=== PATIENT | male | born 1965 | race Caucasian/White ===

== ENCOUNTER 2017-02-06 15:16 | Inpatient (IN) | payer MEDICARE, BC ==
[2017-02-06] MEDS ORDERED: Albuterol/Ipratropium NEB.SOL* Albuterol 2.5 MG/Ipratropium 0.5 MG 3 ML INH ONE (15:54)
--- NOTE | 2017-02-06 16:05 | RAD ---
HISTORY: Shortness of breath COMPARISONS: May 04, 2010 VIEWS: 1: frontal portable view of the chest at 3:48 PM FINDINGS: LINES AND TUBES: None. CARDIOMEDIASTINAL SILHOUETTE: The cardiomediastinal silhouette is normal for portable technique. PLEURA: The costophrenic angles are sharp. No pleural abnormalities are noted. LUNG PARENCHYMA: There is hyperinflation. There is diffuse coarse pattern of reticular opacification similar to the previous examination. ABDOMEN: The upper abdomen is clear. There is no subphrenic gas. BONES AND SOFT TISSUES: No bone or soft tissue abnormalities are noted. IMPRESSION: COPD WITH CHRONIC INTERSTITIAL CHANGES SIMILAR TO THE PREVIOUS EXAMINATION.
[2017-02-06 16:23] LABS: Hematocrit 32 % (42-52); Hemoglobin 10.3 g/dl (14.0-18.0); Mean Corpuscular HGB Conc 32 g/dl (31-36); Mean Corpuscular Hemoglobin 28 pg (27-31); Mean Corpuscular Volume 87 fL (80-94); Mean Platelet Volume 6 um3 (7.4-10.4); Red Blood Count 3.67 10^6/ul (4.0-5.4); Red Cell Distribution Width 17 % (10.5-15); White Blood Count 9.3 10^3/ul (3.5-10.8)
[2017-02-06 16:38] LABS: ALT 13 U/L (7-52); AST 16 U/L (13-39); Albumin 3.4 g/dL (3.2-5.2); Alkaline Phosphatase 114 U/L (34-104); BUN/Creatinine Ratio 27.3 (8-20); Blood Urea Nitrogen 15 mg/dL (6-24); Calcium 9.5 mg/dL (8.6-10.3); Chloride 88 mmol/L (101-111); Globulin 2.7 g/dL (2-4); Glucose 121 mg/dL (70-100); Potassium 4.4 mmol/L (3.5-5.0); Sodium 139 mmol/L (133-145); Total Protein 6.1 g/dL (6.4-8.9)
[2017-02-06 16:44] LABS: Troponin I 0.04 ng/mL (<0.04)
[2017-02-06 16:58] LABS: CO2 Carbon Dioxide 46 mmol/L (22-32)
[2017-02-06] MEDS ORDERED: Albuterol 2.5 MG/3 ML NEB.SOL* (0.083%) INH PRN (20:02)
[2017-02-06 20:15] LABS: FIO2 36
[2017-02-06 20:22] LABS: PCO2 Arterial 91 mmHg (35-45)
[2017-02-06] MEDS ORDERED: Vancomycin per Pharmacy* NOTE FOLLOW UP PRN (20:43)
[2017-02-06] MEDS ORDERED: Vancomycin(*) 1,500 MG in NS 0.9% 250 ML* 250 ML IVPB ONE (21:00)
[2017-02-06] MEDS: Sodium Chloride(INHALANT) 7%* 4 ML NEB.SOLN INH SCH (21:51)
[2017-02-06] MEDS: Albuterol/Ipratropium NEB.SOL* Albuterol 2.5 MG/Ipratropium 0.5 MG 3 ML INH SCH (21:51)
[2017-02-06] MEDS: Heparin VIAL(*) 5000 UNITS/ML VIAL (FIVE THOUSAND) SUBCUT SCH (22:16)
[2017-02-06] MEDS: methylPREDNISolone 125 MG* 2 ML VIAL IV SCH (22:16)
[2017-02-06] MEDS: Mometasone/Formoter 200/5 MDI INH SCH (22:18)
--- NOTE | 2017-02-06 22:19 | ED ---
Salbador Rodriguez Alfonso, scribed for Hussain Vazquez MD on 02/06/17 at 1542 . Complex/Multi-Sys Presentation - HPI Summary HPI Summary: This patient is a 51 year old M presenting to [facility] with a chief complaint of low O2 saturation since yesterday. He was recently discharged from a hospital on CPAP PRN. He states I lost 72% of my exit airways after a toxic exposure in 2001. The patient rates the pain 0/10 in severity. Symptoms aggravated by nothing. Symptoms alleviated by nothing. Patient reports productive cough and fatigue. Patient denies fever, chills, and SOB. Patient is always on 5L NC. PMHx includes COPD and nodule lung disease. - History Of Current Complaint Chief Complaint: EDShortnessOfBreath Time Seen by Provider: 02/06/17 15:31 Hx Obtained From: Patient Onset/Duration: Sudden Onset, Lasting Days - yesterday, Still Present Timing: Constant Aggravating Factor(s): nothing Alleviating Factor(s): nothing Associated Signs And Symptoms: Positive: Other - productive cough and fatigue. Patient denies fever, chills, and SOB. - Allergies/Home Medications Allergies/Adverse Reactions: Allergies Allergy/AdvReac Type Severity Reaction Status Date / Time Iodinated Diagnostic Agents Allergy Severe Anaphylatic Verified 07/20/15 07:59 Shock Mustard Seed Allergy Unknown Verified 07/20/15 07:59 Reaction Details Home Medications: Home Medications Albuterol/Ipratropium NEB.EVARISTO* [Duoneb (Albuterol 2.5 MG/Ipratropium 0.5 MG)] 1 neb INH Q4H PRN 02/06/17 [History Confirmed 02/06/17] Azithromycin TAB* [Zithromax TAB (Z-TACHO) 250 mg #6 tabs] 250 mg PO DAILY [History Confirmed 02/06/17] Cholecalciferol CAP/TAB(NF) [Vitamin D3 CAP/TAB (NF)] 5,000 unit PO DAILY [History Confirmed 02/06/17] Esomeprazole(NF) [NEXium(NF)] 20 mg PO DAILY 02/06/17 [History Confirmed ] Fluticasone NASAL * [Flonase *] 2 spray BOTH NARES DAILY 02/06/17 [History Confirmed 02/06/17] Fluticasone-Salmeterol 500-50* [Advair Diskus 500-50*] 1 puff INH BID 02/06/17 [ History Confirmed 02/06/17] Magnesium Oxide TAB* [MagOx 400 TAB*] 400 mg PO DAILY 02/06/17 [History Confirmed 02/06/17] Metoprolol Succinate XL TAB* [Toprol XL TAB*] 25 mg PO DAILY 02/06/17 [History Confirmed 02/06/17] Tadalafil [Cialis] 2.5 mg PO DAILY 02/06/17 [History Confirmed 02/06/17] predniSONE TAB* [Deltasone TAB*] 10 - 60 mg PO DAILY 02/06/17 [History Confirmed 02/06/17] PMH/Surg Hx/FS Hx/Imm Hx Respiratory History: Reports: Hx Chronic Obstructive Pulmonary Disease (COPD), Other Respiratory Problems/Disorders - 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 Opthamlomology History: Denies: Hx Legally Blind EENT History: Denies: Hx Deafness - Surgical History Surgery Procedure, Year, and Place: SINUS Infectious Disease History: No Infectious Disease History: Denies: Traveled Outside the [place] in Last 30 Days - Family History Known Family History: Negative: Cardiac Disease - Social History Alcohol Use: Rare Hx Substance Use: No Substance Use Type: Reports: None Smoking Status (MU): Never Smoked Tobacco Review of Systems Positive: Fatigue. Negative: Fever, Chills Positive: Cough, Other - low O2 saturation. Negative: Shortness Of Breath All Other Systems Reviewed And Are Negative: Yes Physical Exam Triage Information Reviewed: Yes Vital Signs On Initial Exam: Initial Vitals Temp Pulse Resp BP Pulse Ox 98.2 F 103 16 130/76 73 02/06/17 15:19 02/06/17 15:19 02/06/17 15:19 02/06/17 15:19 02/06/17 15:19 Vital Signs Reviewed: Yes Appearance: Positive: Well-Appearing, No Pain Distress Skin: Positive: Warm, Skin Color Reflects Adequate Perfusion, Dry Head/Face: Positive: Normal Head/Face Inspection Eyes: Positive: Normal ENT: Positive: Normal ENT inspection Neck: Positive: Supple, Nontender Respiratory/Lung Sounds: Positive: Decreased Breath Sounds, Other - Crackles in all lung garcia Cardiovascular: Positive: Tachycardia Abdomen Description: Positive: Nontender, Soft Bowel Sounds: Positive: Present Musculoskeletal: Positive: Normal Neurological: Positive: Normal, Sensory/Motor Intact, Alert, Oriented to Person Place, Time, CN Intact II-III Psychiatric: Positive: Normal, Affect/Mood Appropriate Diagnostics - Vital Signs Vital Signs Temp Pulse Resp BP Pulse Ox 02/06/17 15:19 98.2 F 103 16 130/76 73 - Laboratory Lab Results: Lab Results 02/06/17 02/06/17 02/06/17 Range/Units 16:08 16:08 16:08 WBC 9.3 (3.5-10.8) 10^3/ul RBC 3.67 L (4.0-5.4) 10^6/ul Hgb 10.3 L (14.0-18.0) g/dl Hct 32 L (42-52) % MCV 87 (80-94) fL MCH 28 (27-31) pg MCHC 32 (31-36) g/dl RDW 17 H (10.5-15) % Plt Count 353 (150-450) 10^3/ul MPV 6 L (7.4-10.4) um3 Neut % (Auto) 95.8 H (38-83) % Lymph % (Auto) 2.6 L (25-47) % [place] % (Auto) 1.5 (1-9) % Eos % (Auto) 0 (0-6) % Baso % (Auto) 0.1 (0-2) % Absolute Neuts (auto) 9.0 H (1.5-7.7) 10^3/ul Absolute Lymphs (auto) 0.2 L (1.0-4.8) 10^3/ul Absolute Monos (auto) 0.1 (0-0.8) 10^3/ul Absolute Eos (auto) 0 (0-0.6) 10^3/ul Absolute Basos (auto) 0 (0-0.2) 10^3/ul Absolute Nucleated RBC 0 10^3/ul Nucleated RBC % 0 Sodium 139 (133-145) mmol/L Potassium 4.4 (3.5-5.0) mmol/L Chloride 88 L (101-111) mmol/L Carbon Dioxide 46 H* (22-32) mmol/L Anion Gap Not Reportable BUN 15 (6-24) mg/dL Creatinine 0.55 L (0.67-1.17) mg/dL Est GFR ( Amer) 202.0 (>60) Est GFR (Non-Af Amer) 157.0 (>60) BUN/Creatinine Ratio 27.3 H (8-20) Glucose 121 H (70-100) mg/dL Lactic Acid 0.6 (0.5-2.0) mmol/L Calcium 9.5 (8.6-10.3) mg/dL Total Bilirubin 0.30 (0.2-1.0) mg/dL AST 16 (13-39) U/L ALT 13 (7-52) U/L Alkaline Phosphatase 114 H (34-104) U/L Troponin I 0.04 H* (<0.04) ng/mL B-Natriuretic Peptide ( - 100) pg/mL Total Protein 6.1 L (6.4-8.9) g/dL Albumin 3.4 (3.2-5.2) g/dL Globulin 2.7 (2-4) g/dL Albumin/Globulin Ratio 1.3 (1-3) 02/06/17 Range/Units 16:08 WBC (3.5-10.8) 10^3/ul RBC (4.0-5.4) 10^6/ul Hgb (14.0-18.0) g/dl Hct (42-52) % MCV (80-94) fL MCH (27-31) pg MCHC (31-36) g/dl RDW (10.5-15) % Plt Count (150-450) 10^3/ul MPV (7.4-10.4) um3 Neut % (Auto) (38-83) % Lymph % (Auto) (25-47) % [place] % (Auto) (1-9) % Eos % (Auto) (0-6) % Baso % (Auto) (0-2) % Absolute Neuts (auto) (1.5-7.7) 10^3/ul Absolute Lymphs (auto) (1.0-4.8) 10^3/ul Absolute Monos (auto) (0-0.8) 10^3/ul Absolute Eos (auto) (0-0.6) 10^3/ul Absolute Basos (auto) (0-0.2) 10^3/ul Absolute Nucleated RBC 10^3/ul Nucleated RBC % Sodium (133-145) mmol/L Potassium (3.5-5.0) mmol/L Chloride (101-111) mmol/L Carbon Dioxide (22-32) mmol/L Anion Gap BUN (6-24) mg/dL Creatinine (0.67-1.17) mg/dL Est GFR ( Amer) (>60) Est GFR (Non-Af Amer) (>60) BUN/Creatinine Ratio (8-20) Glucose (70-100) mg/dL Lactic Acid (0.5-2.0) mmol/L Calcium (8.6-10.3) mg/dL Total Bilirubin (0.2-1.0) mg/dL AST (13-39) U/L ALT (7-52) U/L Alkaline Phosphatase (34-104) U/L Troponin I (<0.04) ng/mL B-Natriuretic Peptide 76 ( - 100) pg/mL Total Protein (6.4-8.9) g/dL Albumin (3.2-5.2) g/dL Globulin (2-4) g/dL Albumin/Globulin Ratio (1-3) Result Diagrams: 02/06/17 16:08 02/06/17 16:08 Lab Statement: Any lab studies that have been ordered have been reviewed, and results considered in the medical decision making process. - Radiology CXR Radiology Interpretation Completed By: Radiologist - COPD WITH CHRONIC INTERSTITIAL CHANGES SIMILAR TO THE PREVIOUS EXAMINATION. ED physician has reviewed this radiology report and agrees. - EKG 1633 Cardiac Rate: Tachycardia - BPM 101 EKG Rhythm: Sinus Tachycardia EKG Interpretation: LVH Complex Multi-Symp Course/Dx Course Of Treatment: Mr. Woodard presented with respiratory insufficiency and a long history of bronchiectasis. 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 - Diagnoses Provider Diagnoses: Respiratory insufficiency, Bronchiectasis Discharge - Discharge Plan Condition: Stable Disposition: ADMITTED TO [facility] The documentation as recorded by the Salbador roldan Alfonso accurately reflects the service I personally performed and the decisions made by , Hussain Vazquez MD.
--- NOTE | 2017-02-06 23:08 | HP ---
CC: Katlin Recinos MD; Dr. Nash * HISTORY AND PHYSICAL: DATE OF ADMISSION: 02/06/17 PRIMARY CARE PROVIDER: Katlin Recinos MD ATTENDING PHYSICIAN WHILE IN THE HOSPITAL: Lashell Engle DO * (report dictated by Jose Angel Vera NP) CHIEF COMPLAINT: 1. Cough. 2. Dyspnea on exertion. HISTORY OF PRESENT ILLNESS: Mr. Woodard is a 51-year-old male patient who has a history of IgG immunodeficiency, history of bronchiectasis, history of nodular lung disease, skin cancer and pulmonary hypertension. He comes in today. 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 He was there for about a week. He was treated with high dose steroids, antibiotics and ultimately was discharged on home Trilogy. He had been doing well. He was on a 2-week course of steroids. He just finished the steroids on 01/30/17, he went back down to [place]. He states that since stopping the steroids throughout the last week, he has had progressive worsening shortness of breath. Anytime he gets up and tries to do anything, he is very short of breath. He also has noticed in the last week with his Trilogy that at times he has been satting down into the 70s and not tolerating the machine well. He denied having any chest pain. Denied any fevers or chills. He states he has been coughing up copious amounts of yellow- type sputum, which he always does, there has been no change. However, he was just concerned because he has been feeling more fatigued. He actually was recently just started back on steroids in the form of prednisone over the last 48 hours, but despite this he just has not been improving, so he came into the ER today to be evaluated. He again denied any nausea, vomiting. Denies having any chest pain. Denies any shortness of breath with the exception of with exertion. No orthopnea, no nocturnal dyspnea. No abdominal pain. He has been evaluated in the ED. Because of the concern for the exacerbation of his bronchiectasis, we were asked to evaluate for admission. PAST MEDICAL HISTORY: Significant for: 1. Bronchiectasis. 2. Immunodeficiency disorder. 3. He has IgG nodular lung disease. 4. History of skin cancer. 5. Pulmonary hypertension. PAST SURGICAL HISTORY: 1. He recently just had sinus surgery in [place]. 2. He has a history of skin cancer excision. 3. History of bronchoscopy. HOME MEDICATIONS: Include: 1. Metoprolol 25 mg daily. 2. Magnesium oxide 400 mg daily. 3. Flonase 2 sprays both nares daily. 4. Nexium 20 mg daily. 5. Vitamin D3, 5000 units daily. 6. Z-Yariel 250 mg daily just started. 7. Prednisone taper, take as directed. 8. Cialis 2.5 mg daily. 9. DuoNeb 1 neb every 4 hours as needed. 10. Advair 1 puff inhaled b.i.d. 11. He also is on IgG 1 injection weekly. We will try to get that brought in. ALLERGIES TO MEDICATIONS: Include IV DYE, CIPRO, and MUSTARD SEEDS. FAMILY HISTORY: Mother is diabetic. Father has history of hypertension and Parkinson's. SOCIAL HISTORY: He does not smoke. He does not drink. Surrogate decision maker is his . REVIEW OF SYSTEMS: There is no documented fever. He denied any significant weight change. There was no double vision. There is no ear discharge. He denied having any rhinorrhea. No sore throat. No thyroid enlargement. Denies having any chest pain. There is no orthopnea, no nocturnal dyspnea. There is no abdominal pain. No nausea. No vomiting. No dysuria. No frequency. No seizure. No loss of consciousness. No pruritus. No skin ulcerations. Review of 14 systems was completed; all others negative. PHYSICAL EXAMINATION GENERAL: At this time, Mr. Woodard is a 51-year-old male patient. He appears to be well nourished, well developed. He does not appear to be in any acute distress. VITAL SIGNS: Reveal blood pressure 123/74, pulse 97, respirations 22, O2 sat of 91%, temperature of 98.2. HEENT: Head is atraumatic and normocephalic. Eyes: EOMs are intact. Sclerae are anicteric and not pale. Throat: Oral mucosa appears to be moist. No oropharyngeal erythema. NECK: Supple. LUNGS: Lungs were rhonchorous throughout bilaterally. He had wheezing in the upper lobes. Equal diaphragmatic expansion diminished in the bases. HEART: Sounds S1 and S2. Regular rate and rhythm. No murmurs, rubs, or gallops. ABDOMEN: Soft, flat, and nontender. Bowel sounds were present. EXTREMITIES: Pulses were 2+ throughout. He had no pitting edema. He had 5/5 strength. NEUROLOGIC: He is awake, alert, oriented x3. Tongue was midline. Benefits Administrator were equal. No gross focal deficits. SKIN: Intact. LABORATORY DATA/DIAGNOSTIC STUDIES: WBC 9.3, RBC 3.67, hemoglobin 10.3, hematocrit 32, and platelet count 353,000. Sodium 139, potassium 4.0, chloride 88, bicarb 46, BUN 15, creatinine 0.55, glucose 121. Lactate 0.6. Calcium 9.5. Total bili 0.3. AST 16, ALT 13, alk phos 114. Troponin 0.04. BNP 76. Albumin was 3.4. He had a chest x-ray obtained today. Impression: COPD with chronic interstitial changes similar to previous examination. On my review, it does appear to be slightly worse on tonight's exam. He did have an EKG obtained today as well, which revealed sinus tachycardia with LVH with rate of 101. No ST elevations or T wave inversions. Old medical records were reviewed. ASSESSMENT AND PLAN: Mr. Woodard is a 51-year-old male patient with end-stage bronchiectasis. He is actually awaiting transplant in the [facility]. He is in touch with the transplant team, just admitted in the middle of December, now a month later he was admitted in [facility] just about a month ago, now presenting again today with a week's worsening of shortness of breath, dyspnea on exertion, not feeling well. On evaluation today, he was noted to be mildly tachypneic, wheezing on exam and rhonchorous throughout. We were asked to evaluate for admission. He will be admitted under inpatient status for: 1. Bronchiectasis with exacerbation. I did touch base with Pulmonology. The plan is to go ahead and put him on hypertonic saline, cefepime to cover for Pseudomonas, vancomycin, steroids 60 q.6. In addition to this, we will panculture him. I am not going to give him fluids as he is not hypotensive at this point. He does not appear to have signs of sepsis. We will get an ABG, start him on Trilogy to see how he is tolerating it to see if there is any adjustment that we can make to make him tolerate this better. He was having trouble with desaturations, but I would like to have evaluated by RT. If this does not work, I will place him on BiPAP and we will have Pulmonology evaluate the patient and we will continue to follow him. Should he deteriorate, we will probably consider transfer to a tertiary care center should we not be able to handle the care, but at this point we will go ahead and continue with his current medical regimen. 2. Immunodeficiency disorder. We will continue his IgG. 3. History of nodular lung disease. We are going to continue his current medical regimen. 4. History of pulmonary hypertension. He is on Cialis, we will continue. 5. DVT prophylaxis. He is high risk. I am going to go ahead and place him on heparin subcu. 6. Code status. He is a full code. 7. Fluids, electrolytes, and nutrition. Regular diet. TIME SPENT: On admission 70 minutes, greater than half the time spent face-to- face with the patient obtaining my history and physical; other half time spent going over the plan of care with the patient and implementing plan of care. I did discuss the plan of care with my attending, Dr. Engle, she is in agreement. JOSE ANGEL VERA NP [id number]/[facility] #: [id number] JEREMIAS
[2017-02-06] MEDS: Cefepime 2 GM in Dextrose(*) 2 GM/50 ML BAG IV SCH (23:45)
[2017-02-07] MEDS: Sodium Chloride(INHALANT) 7%* 4 ML NEB.SOLN INH SCH ×4 (02:22→20:39)
[2017-02-07] MEDS: Albuterol/Ipratropium NEB.SOL* Albuterol 2.5 MG/Ipratropium 0.5 MG 3 ML INH SCH ×6 (02:23→20:37)
[2017-02-07 05:13] LABS: Hematocrit 33 % (42-52); Hemoglobin 10.2 g/dl (14.0-18.0); Mean Corpuscular HGB Conc 31 g/dl (31-36); Mean Corpuscular Hemoglobin 27 pg (27-31); Mean Corpuscular Volume 88 fL (80-94); Mean Platelet Volume 7 um3 (7.4-10.4); Red Blood Count 3.78 10^6/ul (4.0-5.4); Red Cell Distribution Width 17 % (10.5-15)
[2017-02-07] MEDS: methylPREDNISolone 125 MG* 2 ML VIAL IV SCH ×3 (05:13→21:59)
[2017-02-07] MEDS: Cefepime 2 GM in Dextrose(*) 2 GM/50 ML BAG IV SCH ×3 (05:13→22:00)
[2017-02-07] MEDS: Heparin VIAL(*) 5000 UNITS/ML VIAL (FIVE THOUSAND) SUBCUT SCH ×3 (05:13→21:59)
[2017-02-07 05:24] LABS: Blood Urea Nitrogen 14 mg/dL (6-24); Calcium 9.6 mg/dL (8.6-10.3); Chloride 90 mmol/L (101-111); EGFR African American 197.8 (>60); EGFR Non-African American 153.8 (>60); Glucose 141 mg/dL (70-100); Sodium 139 mmol/L (133-145)
[2017-02-07 05:47] LABS: CO2 Carbon Dioxide 45 mmol/L (22-32)
[2017-02-07] MEDS: Vancomycin(*) 1,500 MG in NS 0.9% 250 ML* 250 ML IVPB SCH ×3 (06:19→23:31)
[2017-02-07 07:02] LABS: Anion Gap 4 mmol/L (2-11)
--- NOTE | 2017-02-07 07:55 | PN ---
Subjective Date of Service: 02/07/17 Interval History: Somewhat better. At baseline with regard to cough and sputum production. He also states he always wheezes. Objective Active Medications: Albuterol (Ventolin 2.5 Mg/3 Ml Neb.Selina*) 2.5 mg INH Q2H PRN PRN Reason: SOB/WHEEZING Albuterol/Ipratropium (Duoneb (Albuterol 2.5 Mg/Ipratropium 0.5 Mg)) 1 neb INH Q4H [facility] Last Admin: 02/07/17 06:18 Dose: 1 neb Heparin Sodium (Porcine) (Heparin Vial(*)) 5,000 units SUBCUT Q8HR [facility] Last Admin: 02/07/17 05:13 Dose: 5,000 units Cefepime HCl (Maxipime 2 Gm In Dextrose Duplex (*)) 2 gm in 50 mls @ 100 mls/ hr IV Q8H [facility] Last Admin: 02/07/17 05:13 Dose: 100 mls/hr Vancomycin HCl 1,500 mg/ (Sodium Chloride) 250 mls @ 166.667 mls/hr IVPB Q8H [facility] Last Admin: 02/07/17 06:19 Dose: 166.667 mls/hr Methylprednisolone Sodium Succinate (Solu-Medrol 125mg *) 60 mg IV Q8H [facility] Last Admin: 02/07/17 05:13 Dose: 60 mg Metoprolol Succinate (Toprol Xl Tab*) 25 mg PO DAILY [facility] Mometasone Furoate/Formoterol Fumar (Dulera 200/5 Mdi*) 2 puff INH BID [facility] Last Admin: 02/06/17 22:18 Dose: 2 puff (Tadalafil [Cialis] (2.5 Mg)) 2.5 mg PO DAILY [facility] Omeprazole (Prilosec Cap*) 20 mg PO DAILY [facility] PRN Reason: Protocol Pharmacy Consult (Vancomycin Per Pharmacy*) 1 note FOLLOW UP . PRN PRN Reason: PER PROTOCOL Pharmacy Profile Note (Vancomycin Trough Check) 1 note FOLLOW UP 2200 ONE Stop: 02/07/17 22:01 Sodium Chloride (Hyper-Librado 7%*) 4 ml INH Q6H [facility] Last Admin: 02/07/17 02:22 Dose: 4 ml Vital Signs 02/06/17 02/06/17 02/06/17 19:00 19:30 20:00 Temperature Pulse Rate 105 107 105 Respiratory 30 31 22 Rate Blood Pressure 130/70 129/62 111/66 (mmHg) O2 Sat by Pulse 93 88 92 Oximetry 02/06/17 02/06/17 02/06/17 20:30 21:00 21:04 Temperature Pulse Rate 105 106 106 Respiratory 21 22 28 Rate Blood Pressure 117/58 116/63 (mmHg) O2 Sat by Pulse 91 93 93 Oximetry 02/06/17 02/06/17 02/06/17 21:34 21:42 21:45 Temperature 99.3 F Pulse Rate 100 107 104 Respiratory 23 28 23 Rate Blood Pressure 111/74 111/74 119/72 (mmHg) O2 Sat by Pulse 94 94 94 Oximetry 02/06/17 02/06/17 02/06/17 21:52 22:00 22:15 Temperature Pulse Rate 96 101 111 Respiratory 18 13 23 Rate Blood Pressure 111/75 147/94 (mmHg) O2 Sat by Pulse 100 100 91 Oximetry 02/06/17 02/06/17 02/06/17 22:30 22:45 23:00 Temperature Pulse Rate 98 97 97 Respiratory 20 18 20 Rate Blood Pressure 130/80 141/80 129/81 (mmHg) O2 Sat by Pulse 93 91 91 Oximetry 02/06/17 02/06/17 02/06/17 23:15 23:26 23:30 Temperature 98.2 F Pulse Rate 93 100 91 Respiratory 20 19 25 Rate Blood Pressure 149/87 135/84 (mmHg) O2 Sat by Pulse 88 84 83 Oximetry 02/06/17 02/06/17 02/06/17 23:41 23:45 23:46 Temperature Pulse Rate 96 Respiratory 20 20 Rate Blood Pressure 135/83 147/90 (mmHg) O2 Sat by Pulse 100 Oximetry 02/07/17 02/07/17 02/07/17 00:00 00:15 00:30 Temperature Pulse Rate 92 93 85 Respiratory 20 14 19 Rate Blood Pressure 131/80 128/85 136/85 (mmHg) O2 Sat by Pulse 98 98 94 Oximetry 02/07/17 02/07/17 02/07/17 00:37 00:45 00:56 Temperature Pulse Rate 94 91 Respiratory 15 16 17 Rate Blood Pressure 161/94 (mmHg) O2 Sat by Pulse 92 88 Oximetry 02/07/17 02/07/17 02/07/17 01:00 01:54 01:55 Temperature Pulse Rate 104 104 Respiratory 14 19 19 Rate Blood Pressure 145/77 (mmHg) O2 Sat by Pulse 90 93 Oximetry 02/07/17 02/07/17 02/07/17 02:00 02:24 02:31 Temperature Pulse Rate 87 92 96 Respiratory 22 22 22 Rate Blood Pressure 129/81 (mmHg) O2 Sat by Pulse 93 98 98 Oximetry 02/07/17 02/07/17 02/07/17 03:00 03:14 03:44 Temperature Pulse Rate 97 83 121 Respiratory 20 16 21 Rate Blood Pressure 138/86 138/86 (mmHg) O2 Sat by Pulse 92 88 82 Oximetry 02/07/17 02/07/17 02/07/17 04:00 04:07 04:58 Temperature 97.8 F Pulse Rate 86 88 Respiratory 16 17 20 Rate Blood Pressure 134/85 (mmHg) O2 Sat by Pulse 91 90 Oximetry 02/07/17 02/07/17 02/07/17 05:00 05:16 06:00 Temperature Pulse Rate 111 99 105 Respiratory 19 23 17 Rate Blood Pressure 134/76 (mmHg) O2 Sat by Pulse 91 93 93 Oximetry 02/07/17 02/07/17 02/07/17 07:00 07:32 07:37 Temperature 97.2 F Pulse Rate 96 113 Respiratory 25 19 Rate Blood Pressure 124/69 (mmHg) O2 Sat by Pulse 95 91 Oximetry Oxygen Devices in Use Now: Nasal Cannula Appearance: Alert, sitting on the edge of his ICU bed. In good spirits. Looks comfortable. No cough during my visit. Ears/Nose/Mouth/Throat: Clear Oropharnyx, Mucous Membranes Moist Neck: NL Appearance and Movements; NL JVP, No Thyroid Enlargement, Masses Respiratory: Symmetrical Chest Expansion and Respiratory Effort, Clear to Percussion - mild wheezing and rhonchi BL Cardiovascular: NL Sounds; No Murmurs; No JVD, RRR, No Edema, - Extremities: No Edema, No Clubbing, Cyanosis, - Skin: No Rash or Ulcers, No Nodules or Sclerosis, - Neurological: Alert and Oriented x 3, NL Sensation Result Diagrams: 02/07/17 04:53 02/07/17 04:53 Additional Lab and Data: Lab Results 02/06/17 02/06/17 02/06/17 Range/Units 16:08 16:08 16:08 WBC 9.3 (3.5-10.8) 10^3/ul RBC 3.67 L (4.0-5.4) 10^6/ul Hgb 10.3 L (14.0-18.0) g/dl Hct 32 L (42-52) % MCV 87 (80-94) fL MCH 28 (27-31) pg MCHC 32 (31-36) g/dl RDW 17 H (10.5-15) % Plt Count 353 (150-450) 10^3/ul MPV 6 L (7.4-10.4) um3 Neut % (Auto) 95.8 H (38-83) % Lymph % (Auto) 2.6 L (25-47) % [place] % (Auto) 1.5 (1-9) % Eos % (Auto) 0 (0-6) % Baso % (Auto) 0.1 (0-2) % Absolute Neuts (auto) 9.0 H (1.5-7.7) 10^3/ul Absolute Lymphs (auto) 0.2 L (1.0-4.8) 10^3/ul Absolute Monos (auto) 0.1 (0-0.8) 10^3/ul Absolute Eos (auto) 0 (0-0.6) 10^3/ul Absolute Basos (auto) 0 (0-0.2) 10^3/ul Absolute Nucleated RBC 0 10^3/ul Nucleated RBC % 0 Sodium 139 (133-145) mmol/L Potassium 4.4 (3.5-5.0) mmol/L Chloride 88 L (101-111) mmol/L Carbon Dioxide 46 H* (22-32) mmol/L Anion Gap Not Reportable BUN 15 (6-24) mg/dL Creatinine 0.55 L (0.67-1.17) mg/dL Est GFR ( Amer) 202.0 (>60) Est GFR (Non-Af Amer) 157.0 (>60) BUN/Creatinine Ratio 27.3 H (8-20) Glucose 121 H (70-100) mg/dL Lactic Acid 0.6 (0.5-2.0) mmol/L Calcium 9.5 (8.6-10.3) mg/dL Total Bilirubin 0.30 (0.2-1.0) mg/dL AST 16 (13-39) U/L ALT 13 (7-52) U/L Alkaline Phosphatase 114 H (34-104) U/L Troponin I 0.04 H* (<0.04) ng/mL B-Natriuretic Peptide ( - 100) pg/mL Total Protein 6.1 L (6.4-8.9) g/dL Albumin 3.4 (3.2-5.2) g/dL Globulin 2.7 (2-4) g/dL Albumin/Globulin Ratio 1.3 (1-3) 02/06/17 Range/Units 16:08 WBC (3.5-10.8) 10^3/ul RBC (4.0-5.4) 10^6/ul Hgb (14.0-18.0) g/dl Hct (42-52) % MCV (80-94) fL MCH (27-31) pg MCHC (31-36) g/dl RDW (10.5-15) % Plt Count (150-450) 10^3/ul MPV (7.4-10.4) um3 Neut % (Auto) (38-83) % Lymph % (Auto) (25-47) % [place] % (Auto) (1-9) % Eos % (Auto) (0-6) % Baso % (Auto) (0-2) % Absolute Neuts (auto) (1.5-7.7) 10^3/ul Absolute Lymphs (auto) (1.0-4.8) 10^3/ul Absolute Monos (auto) (0-0.8) 10^3/ul Absolute Eos (auto) (0-0.6) 10^3/ul Absolute Basos (auto) (0-0.2) 10^3/ul Absolute Nucleated RBC 10^3/ul Nucleated RBC % Sodium (133-145) mmol/L Potassium (3.5-5.0) mmol/L Chloride (101-111) mmol/L Carbon Dioxide (22-32) mmol/L Anion Gap BUN (6-24) mg/dL Creatinine (0.67-1.17) mg/dL Est GFR ( Amer) (>60) Est GFR (Non-Af Amer) (>60) BUN/Creatinine Ratio (8-20) Glucose (70-100) mg/dL Lactic Acid (0.5-2.0) mmol/L Calcium (8.6-10.3) mg/dL Total Bilirubin (0.2-1.0) mg/dL AST (13-39) U/L ALT (7-52) U/L Alkaline Phosphatase (34-104) U/L Troponin I (<0.04) ng/mL B-Natriuretic Peptide 76 ( - 100) pg/mL Total Protein (6.4-8.9) g/dL Albumin (3.2-5.2) g/dL Globulin (2-4) g/dL Albumin/Globulin Ratio (1-3) Microbiology and Other Data: Microbiology 02/06/17 21:26 Gram Stain - Final Sputum Expectorated 02/06/17 22:30 Legionella Urinary Antigen - Final Urine Negative Legionella Streptococcus pneumoniae Ag Screen - Final Negative S. pneumo Antigen 02/06/17 21:26 Nasal Screen MRSA (PCR)(AUTUMN) - Final Nasal Mrsa Negative 02/06/17 21:38 Influenza Types A,B Antigen (AUTUMN) - Final Nasal Specimen received for Influenza A/B Molecular testing Assess/Plan/Problems-Billing Assessment: - Patient Problems (1) Bronchiectasis Current Visit: Yes Status: Acute Code(s): J47.9 - BRONCHIECTASIS, UNCOMPLICATED SNOMED Code(s): 14765188 Comment: Continue antibiotics, steroids, bronchodilators. Dr. Nash to consult 02/07. Add guaifenesin ER. I had a lengthy discussion with patient about treatment options. He did not tolerate Trilogy even after an adjustment at home by the company rep. (2) IgG deficiency Current Visit: Yes Status: Acute Code(s): D80.3 - SELECTIVE DEFICIENCY OF IMMUNOGLOBULIN G [IGG] SUBCLASSES SNOMED Code(s): 28747579853737 Comment: Continue fup by his paster supervisor. He sefl-inject IgG at home every Thursday. Pt advised to have his bring it in if he is still here Thursday.
[2017-02-07] MEDS ORDERED: NS 0.9% 250 ML* 250 ML ONE (08:56)
[2017-02-07] MEDS: Mometasone/Formoter 200/5 MDI INH SCH ×2 (09:05→20:40)
[2017-02-07] MEDS: Metoprolol Succinate XL TAB* 25 MG PO SCH (09:29)
[2017-02-07] MEDS: guaiFENesin ER TAB 600 MG PO SCH ×2 (09:29→21:59)
[2017-02-07] MEDS: Omeprazole CAP* 20 MG PO SCH (09:29)
[2017-02-07] MEDS: TADALAFIL 2.5 MG PO SCH (09:30)
--- NOTE | 2017-02-07 13:11 | CONS ---
PULMONARY CONSULTATION REPORT: DATE OF CONSULTATION: 02/07/17 CONSULTATION REQUESTED BY: Jose Angel Vera NP REASON FOR CONSULTATION: Evaluation of shortness of breath, bronchiectasis exacerbation. HISTORY OF PRESENT ILLNESS: The patient is a 51-year-old male with history of IgE immunodeficiency, history of bronchiectasis likely secondary to occupational exposure, history of nodular lung disease, skin cancer, and pulmonary hypertension. The patient comes in for evaluation of cough and worsening shortness of breath. 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 The patient reported occupational lung disease that resulted in bronchiectasis. He has history of pneumonia as a child given IgG deficiency. He is currently on IgG infusions. The patient reported worsening shortness of breath over the past week prior to the admission. He was recently hospitalized for bronchiectasis exacerbation, was treated with antibiotics and steroids. Given hypercapnic respiratory failure, he was discharged home on Trilogy. The patient has noticed significant hypoxemia and fatigue with Trilogy. His machine was never titrated. He is currently on tidal volume of 400, rate auto, rise time of 1, IPAP max of 15, IPAP minimum of 5, EPAP minimum of 4, max pressure of 25. The patient reports that he connects 4 L oxygen to his Trilogy. His oxygen concentrator was changed recently due to some issues. The patient reports no increasing cough or sputum production recently. The patient denied nausea, vomiting, chest pain. He has dyspnea on exertion, which he did not think was changed from his baseline. His main concern was the fatigue. He denied orthopnea, nocturnal dyspnea, abdominal pain, fevers, or chills. The patient was admitted for management of acute hypoxemic and hypercapnic respiratory failure, likely secondary to bronchiectasis. The patient was placed on BiPAP from the hospital last night. The patient reports improvement in symptoms currently. The patient reports that he is able to cough off his mucus well this morning. No hemoptysis noted. PAST MEDICAL HISTORY: 1. Bronchiectasis. 2. Immunodeficiency disorder. 3. IgG nodular disease. 4. Skin cancer. 5. Pulmonary hypertension. SURGICAL HISTORY: 1. Recently had sinus surgery in [place]. 2. Skin cancer excision. 3. Bronchoscopy. MEDICATIONS AT HOME: 1. Metoprolol 25 mg daily. 2. Magnesium oxide 400 mg daily. 3. Flonase 2 sprays both nares daily. 4. Nexium 20 mg daily. 5. Vitamin D3 5000 units daily. 6. Z-Yariel 250 mg daily. 7. Prednisone taper. 8. Cialis 2.5 mg daily. 9. DuoNeb 1 mg q.4 hours. 10. Advair 1 puff b.i.d. 11. IgG injections weekly. ALLERGIES: DYE, CIPRO, MUSTARD SEEDS. FAMILY HISTORY: Mother is diabetic. Father with hypertension and Parkinson's. SOCIAL HISTORY: The patient is a lifelong nonsmoker. No history of alcohol abuse. The patient denied any drug abuse. He lives at home with his . REVIEW OF SYSTEMS: All 14 systems reviewed and as per HPI. PHYSICAL EXAM: The patient in bed, in no apparent distress. Vital Signs: Temperature 97.2, heart rate 107 beats per minute, respiratory rate 20 per minute, O2 sat 93% to 92% on 4 L, blood pressure 130/96. HEENT: Pupils equal, reactive to light. Mucous membranes moist. Lungs: Scattered expiratory wheeze and crackles present bilaterally. Cardiovascular: S1, S2 present, tachycardic. Abdomen: Soft, nontender, nondistended. Bowel sounds present. Extremities: Normal range of motion. Pulses 2+. Neurologic: Alert, awake, oriented x3. No focal deficits. Skin: Intact. No bruise. DIAGNOSTIC STUDIES/LAB DATA: No leukocytosis with WBC count of 5.0, hemoglobin 10.2, hematocrit 33, platelet count 381. INR 1.02. Blood gas analysis on admission showed pH of 7.41, pCO2 91, pO2 58, and 36% FiO2 with a bicarb of 47. Sodium was 139, potassium 4.4, chloride 90, bicarb 45, BUN 14, creatinine 0.56. Lactic acid within normal limits. Troponins elevated and stable at 0.04. BNP 76. Serum cultures negative to date. MRSA negative. Strep pneumo and Legionella negative. Chest x-ray on admission was personally reviewed by me and comparison with his prior chest x-ray - the patient noted to have chronic interstitial changes bilaterally and evidence of hyperinflation. No consolidation or dense airspace opacities were noted. IMPRESSION AND RECOMMENDATIONS: 51-year-old male with history of IgG deficiency , bronchiectasis secondary to IgG and recurrent bronchitis, and possible occupational lung disease, admitted with: 1. Acute on chronic hypoxemic and hypercapnic respiratory failure. 2. Bronchiectasis exacerbation. 3. Immunoglobin E deficiency. 4. Pulmonary hypertension. 5. Elevated troponins, likely demand ischemia. 6. Anemia. The patient is stable currently, desats in between, however, not using accessory muscles of respiration at this time. No hemoptysis. I think main issue here is Trilogy not functioning well at home or probably oxygen source is defective. He did better with BiPAP ST here, would continue at night and use it during the day for respiratory distress. He is stable to be managed on the floor, is not in acute respiratory failure at this time that he would need close monitoring when he is on BiPAP. The patient is on broad-spectrum antibiotics for pseudomonal coverage and also MRSA given history of bronchiectasis. Agree with current dose of Solu-Medrol at 60 mg IV q.8, we will continue with that dose today and would taper it of to 60 mg q.12 hours tomorrow. Continue with hypertonic nebs and albuterol nebs q.6 hours while awake. The patient's is to bring in his Vest therapy, the patient is aware of technique of usage. Demand ischemia, he is on metoprolol, still tachycardic likely secondary to underlying respiratory problem. Continue with Cialis for pulmonary hypertension secondary to bronchiectasis. Would manage non-CF bronchiectasis with focus on airway clearance. Thank you for allowing me to participate in the care of your patient. Will follow up with you. [id number]/RAJ #: [id number] JEREMIAS
[2017-02-07] MEDS ORDERED: Vancomycin Trough Check NOTE FOLLOW UP ONE (22:00)
[2017-02-08] MEDS: Albuterol/Ipratropium NEB.SOL* Albuterol 2.5 MG/Ipratropium 0.5 MG 3 ML INH SCH ×6 (01:58→22:03)
[2017-02-08] MEDS: Sodium Chloride(INHALANT) 7%* 4 ML NEB.SOLN INH SCH ×4 (02:00→22:03)
[2017-02-08] MEDS: Cefepime 2 GM in Dextrose(*) 2 GM/50 ML BAG IV SCH ×3 (05:12→19:31)
[2017-02-08] MEDS: Vancomycin(*) 1,500 MG in NS 0.9% 250 ML* 250 ML IVPB SCH ×3 (05:56→20:37)
[2017-02-08] MEDS: Heparin VIAL(*) 5000 UNITS/ML VIAL (FIVE THOUSAND) SUBCUT SCH ×3 (05:57→20:37)
[2017-02-08] MEDS: methylPREDNISolone SOD 40 MG* 1 ML VIAL IV SCH ×2 (09:01→20:36)
[2017-02-08] MEDS: Metoprolol Succinate XL TAB* 25 MG PO SCH (09:02)
[2017-02-08] MEDS: guaiFENesin ER TAB 600 MG PO SCH ×2 (09:02→20:36)
[2017-02-08] MEDS: Omeprazole CAP* 20 MG PO SCH (09:02)
[2017-02-08] MEDS: Mometasone/Formoter 200/5 MDI INH SCH ×2 (09:32→22:04)
[2017-02-08] MEDS: TADALAFIL 2.5 MG PO SCH (09:38)
--- NOTE | 2017-02-08 17:17 | PN ---
Subjective Date of Service: 02/08/17 Interval History: No subj change. Using his percussion vest 3-4 times a day here as he does at home. Objective Active Medications: Albuterol (Ventolin 2.5 Mg/3 Ml Neb.Selina*) 2.5 mg INH Q2H PRN PRN Reason: SOB/WHEEZING Albuterol/Ipratropium (Duoneb (Albuterol 2.5 Mg/Ipratropium 0.5 Mg)) 1 neb INH Q4H [facility] Last Admin: 02/08/17 14:26 Dose: 1 neb Guaifenesin (Mucinex*) 1,200 mg PO BID [facility] Last Admin: 02/08/17 09:02 Dose: 1,200 mg Heparin Sodium (Porcine) (Heparin Vial(*)) 5,000 units SUBCUT Q8HR [facility] Last Admin: 02/08/17 15:20 Dose: 5,000 units Cefepime HCl (Maxipime 2 Gm In Dextrose Duplex (*)) 2 gm in 50 mls @ 100 mls/ hr IV Q8H [facility] Last Admin: 02/08/17 12:50 Dose: 100 mls/hr Vancomycin HCl 1,500 mg/ (Sodium Chloride) 250 mls @ 166.667 mls/hr IVPB Q8H [facility] Last Admin: 02/08/17 15:20 Dose: 166.667 mls/hr Methylprednisolone Sodium Succinate (Solu-Medrol 40 Mg) 60 mg IV Q12H [facility] Last Admin: 02/08/17 09:01 Dose: 60 mg Metoprolol Succinate (Toprol Xl Tab*) 25 mg PO DAILY [facility] Last Admin: 02/08/17 09:02 Dose: 25 mg Mometasone Furoate/Formoterol Fumar (Dulera 200/5 Mdi*) 2 puff INH BID [facility] Last Admin: 02/08/17 09:32 Dose: 2 puff (Tadalafil [Cialis] (2.5 Mg)) 2.5 mg PO DAILY [facility] Last Admin: 02/08/17 09:38 Dose: Not Given Omeprazole (Prilosec Cap*) 20 mg PO DAILY [facility] PRN Reason: Protocol Last Admin: 02/08/17 09:02 Dose: 20 mg Pharmacy Consult (Vancomycin Per Pharmacy*) 1 note FOLLOW UP . PRN PRN Reason: PER PROTOCOL Sodium Chloride (Hyper-Librado 7%*) 4 ml INH Q6H [facility] Last Admin: 02/08/17 14:26 Dose: 4 ml Vital Signs 02/07/17 02/07/17 02/07/17 18:06 20:00 20:21 Temperature 98.1 F Pulse Rate 103 99 Respiratory 20 20 20 Rate Blood Pressure 139/69 (mmHg) O2 Sat by Pulse 94 89 Oximetry 02/07/17 02/07/17 02/07/17 20:48 20:51 23:25 Temperature Pulse Rate 104 100 Respiratory 20 16 Rate Blood Pressure 142/73 (mmHg) O2 Sat by Pulse 96 96 93 Oximetry 02/08/17 02/08/17 02/08/17 02:01 03:30 06:14 Temperature Pulse Rate 96 93 95 Respiratory 20 18 20 Rate Blood Pressure 138/76 (mmHg) O2 Sat by Pulse 95 90 95 Oximetry 02/08/17 02/08/17 02/08/17 07:24 08:00 09:36 Temperature 97.6 F Pulse Rate 98 112 Respiratory 16 19 18 Rate Blood Pressure 136/71 (mmHg) O2 Sat by Pulse 92 91 Oximetry 02/08/17 02/08/17 02/08/17 11:43 14:28 15:16 Temperature 97.9 F 97.8 F Pulse Rate 98 102 113 Respiratory 19 Rate Blood Pressure 122/72 (mmHg) O2 Sat by Pulse 95 89 Oximetry 02/08/17 16:00 Temperature Pulse Rate 105 Respiratory 16 Rate Blood Pressure 133/62 (mmHg) O2 Sat by Pulse Oximetry Oxygen Devices in Use Now: Nasal Cannula Appearance: Alert, sitting up in bed. In good spirits. Looks comfortable but frequent coughing. Eyes: No Scleral Icterus Neck: NL Appearance and Movements; NL JVP, No Thyroid Enlargement, Masses Respiratory: Symmetrical Chest Expansion and Respiratory Effort, Clear to Percussion - bibasilar rhonchi Cardiovascular: NL Sounds; No Murmurs; No JVD, RRR, No Edema, - Extremities: No Edema, No Clubbing, Cyanosis, - Skin: No Rash or Ulcers, No Nodules or Sclerosis, - Neurological: Alert and Oriented x 3, NL Sensation Result Diagrams: 02/07/17 04:53 02/07/17 22:49 Additional Lab and Data: Lab Results 02/06/17 02/06/17 02/06/17 Range/Units 16:08 16:08 16:08 WBC 9.3 (3.5-10.8) 10^3/ul RBC 3.67 L (4.0-5.4) 10^6/ul Hgb 10.3 L (14.0-18.0) g/dl Hct 32 L (42-52) % MCV 87 (80-94) fL MCH 28 (27-31) pg MCHC 32 (31-36) g/dl RDW 17 H (10.5-15) % Plt Count 353 (150-450) 10^3/ul MPV 6 L (7.4-10.4) um3 Neut % (Auto) 95.8 H (38-83) % Lymph % (Auto) 2.6 L (25-47) % [place] % (Auto) 1.5 (1-9) % Eos % (Auto) 0 (0-6) % Baso % (Auto) 0.1 (0-2) % Absolute Neuts (auto) 9.0 H (1.5-7.7) 10^3/ul Absolute Lymphs (auto) 0.2 L (1.0-4.8) 10^3/ul Absolute Monos (auto) 0.1 (0-0.8) 10^3/ul Absolute Eos (auto) 0 (0-0.6) 10^3/ul Absolute Basos (auto) 0 (0-0.2) 10^3/ul Absolute Nucleated RBC 0 10^3/ul Nucleated RBC % 0 Sodium 139 (133-145) mmol/L Potassium 4.4 (3.5-5.0) mmol/L Chloride 88 L (101-111) mmol/L Carbon Dioxide 46 H* (22-32) mmol/L Anion Gap Not Reportable BUN 15 (6-24) mg/dL Creatinine 0.55 L (0.67-1.17) mg/dL Est GFR ( Amer) 202.0 (>60) Est GFR (Non-Af Amer) 157.0 (>60) BUN/Creatinine Ratio 27.3 H (8-20) Glucose 121 H (70-100) mg/dL Lactic Acid 0.6 (0.5-2.0) mmol/L Calcium 9.5 (8.6-10.3) mg/dL Total Bilirubin 0.30 (0.2-1.0) mg/dL AST 16 (13-39) U/L ALT 13 (7-52) U/L Alkaline Phosphatase 114 H (34-104) U/L Troponin I 0.04 H* (<0.04) ng/mL B-Natriuretic Peptide ( - 100) pg/mL Total Protein 6.1 L (6.4-8.9) g/dL Albumin 3.4 (3.2-5.2) g/dL Globulin 2.7 (2-4) g/dL Albumin/Globulin Ratio 1.3 (1-3) 02/06/17 Range/Units 16:08 WBC (3.5-10.8) 10^3/ul RBC (4.0-5.4) 10^6/ul Hgb (14.0-18.0) g/dl Hct (42-52) % MCV (80-94) fL MCH (27-31) pg MCHC (31-36) g/dl RDW (10.5-15) % Plt Count (150-450) 10^3/ul MPV (7.4-10.4) um3 Neut % (Auto) (38-83) % Lymph % (Auto) (25-47) % [place] % (Auto) (1-9) % Eos % (Auto) (0-6) % Baso % (Auto) (0-2) % Absolute Neuts (auto) (1.5-7.7) 10^3/ul Absolute Lymphs (auto) (1.0-4.8) 10^3/ul Absolute Monos (auto) (0-0.8) 10^3/ul Absolute Eos (auto) (0-0.6) 10^3/ul Absolute Basos (auto) (0-0.2) 10^3/ul Absolute Nucleated RBC 10^3/ul Nucleated RBC % Sodium (133-145) mmol/L Potassium (3.5-5.0) mmol/L Chloride (101-111) mmol/L Carbon Dioxide (22-32) mmol/L Anion Gap BUN (6-24) mg/dL Creatinine (0.67-1.17) mg/dL Est GFR ( Amer) (>60) Est GFR (Non-Af Amer) (>60) BUN/Creatinine Ratio (8-20) Glucose (70-100) mg/dL Lactic Acid (0.5-2.0) mmol/L Calcium (8.6-10.3) mg/dL Total Bilirubin (0.2-1.0) mg/dL AST (13-39) U/L ALT (7-52) U/L Alkaline Phosphatase (34-104) U/L Troponin I (<0.04) ng/mL B-Natriuretic Peptide 76 ( - 100) pg/mL Total Protein (6.4-8.9) g/dL Albumin (3.2-5.2) g/dL Globulin (2-4) g/dL Albumin/Globulin Ratio (1-3) Microbiology and Other Data: Microbiology 02/06/17 21:26 Gram Stain - Final Sputum Expectorated 02/06/17 22:30 Legionella Urinary Antigen - Final Urine Negative Legionella Streptococcus pneumoniae Ag Screen - Final Negative S. pneumo Antigen 02/06/17 21:26 Nasal Screen MRSA (PCR)(AUTUMN) - Final Nasal Mrsa Negative 02/06/17 21:38 Influenza Types A,B Antigen (AUTUMN) - Final Nasal Specimen received for Influenza A/B Molecular testing Assess/Plan/Problems-Billing Assessment: - Patient Problems (1) Bronchiectasis Current Visit: Yes Status: Acute Code(s): J47.9 - BRONCHIECTASIS, UNCOMPLICATED SNOMED Code(s): 30238853 Comment: Continue antibiotics, steroids, bronchodilators. Dr. Nash to consult 02/07. Add guaifenesin ER. I had a lengthy discussion with patient about treatment options. He did not tolerate Trilogy even after an adjustment at home by the company rep. He is awaiting the [employer] rep to receive new parameters from Dr. Nash and come in and make sure the [employer] [place] machine is working on the patient before he goes home. (2) IgG deficiency Current Visit: Yes Status: Acute Code(s): D80.3 - SELECTIVE DEFICIENCY OF IMMUNOGLOBULIN G [IGG] SUBCLASSES SNOMED Code(s): 82148815036507 Comment: Continue fup by his express clerk. He sefl-inject IgG at home every Thursday. Pt advised to have his bring it in if he is still here Thursday.
[2017-02-08] MEDS ORDERED: TADALAFIL 5 MG PO SCH (17:36)
[2017-02-09] MEDS: Sodium Chloride(INHALANT) 7%* 4 ML NEB.SOLN INH SCH ×4 (02:13→20:05)
[2017-02-09] MEDS: Albuterol/Ipratropium NEB.SOL* Albuterol 2.5 MG/Ipratropium 0.5 MG 3 ML INH SCH ×6 (02:13→20:05)
[2017-02-09] MEDS: Cefepime 2 GM in Dextrose(*) 2 GM/50 ML BAG IV SCH ×3 (05:29→20:47)
[2017-02-09] MEDS: Vancomycin(*) 1,500 MG in NS 0.9% 250 ML* 250 ML IVPB SCH (06:43)
[2017-02-09] MEDS: Heparin VIAL(*) 5000 UNITS/ML VIAL (FIVE THOUSAND) SUBCUT SCH ×3 (06:47→20:47)
[2017-02-09] MEDS: Mometasone/Formoter 200/5 MDI INH SCH ×2 (08:53→20:05)
[2017-02-09] MEDS: methylPREDNISolone SOD 40 MG* 1 ML VIAL IV SCH ×2 (09:29→20:46)
[2017-02-09] MEDS: Metoprolol Succinate XL TAB* 25 MG PO SCH (09:30)
[2017-02-09] MEDS: Omeprazole CAP* 20 MG PO SCH (09:30)
[2017-02-09] MEDS: guaiFENesin ER TAB 600 MG PO SCH ×2 (09:30→20:47)
[2017-02-09] MEDS: TADALAFIL 5 MG PO SCH (09:32)
--- NOTE | 2017-02-09 13:28 | PN ---
Subjective Date of Service: 02/09/17 Interval History: HOSPITALIST PROGRESS NOTE Patient seen and examined at bedside. He offers no new complaints today. Dyspnea is at baseline, thinks he has more sputum production today. Has not use his percussion vest yet so far today. Family History: Unchanged from Admission Social History: Unchanged from Admission Past Medical History: Unchanged from Admission Objective Active Medications: Albuterol (Ventolin 2.5 Mg/3 Ml Neb.Selina*) 2.5 mg INH Q2H PRN PRN Reason: SOB/WHEEZING Albuterol/Ipratropium (Duoneb (Albuterol 2.5 Mg/Ipratropium 0.5 Mg)) 1 neb INH Q4H [facility] Last Admin: 02/09/17 08:56 Dose: 1 neb Guaifenesin (Mucinex*) 1,200 mg PO BID [facility] Last Admin: 02/09/17 09:30 Dose: 1,200 mg Heparin Sodium (Porcine) (Heparin Vial(*)) 5,000 units SUBCUT Q8HR [facility] Last Admin: 02/09/17 13:19 Dose: 5,000 units Cefepime HCl (Maxipime 2 Gm In Dextrose Duplex (*)) 2 gm in 50 mls @ 100 mls/ hr IV Q8H [facility] Last Admin: 02/09/17 13:20 Dose: 100 mls/hr Vancomycin HCl 1,500 mg/ (Sodium Chloride) 250 mls @ 166.667 mls/hr IVPB Q8H [facility] Last Admin: 02/09/17 06:43 Dose: 166.667 mls/hr Methylprednisolone Sodium Succinate (Solu-Medrol 40 Mg) 60 mg IV Q12H [facility] Last Admin: 02/09/17 09:29 Dose: 60 mg Metoprolol Succinate (Toprol Xl Tab*) 25 mg PO DAILY [facility] Last Admin: 02/09/17 09:30 Dose: 25 mg Mometasone Furoate/Formoterol Fumar (Dulera 200/5 Mdi*) 2 puff INH BID [facility] Last Admin: 02/09/17 08:53 Dose: 2 puff Omeprazole (Prilosec Cap*) 20 mg PO DAILY [facility] PRN Reason: Protocol Last Admin: 02/09/17 09:30 Dose: 20 mg Pharmacy Consult (Vancomycin Per Pharmacy*) 1 note FOLLOW UP . PRN PRN Reason: PER PROTOCOL Sodium Chloride (Hyper-Librado 7%*) 4 ml INH Q6H [facility] Last Admin: 02/09/17 08:56 Dose: 4 ml Tadalafil (Cialis (Nf)) 2.5 mg PO DAILY [facility] Last Admin: 02/09/17 09:32 Dose: 2.5 mg Vital Signs 02/08/17 02/08/17 02/08/17 18:14 19:31 20:00 Temperature 97.6 F Pulse Rate 102 113 Respiratory 16 18 18 Rate Blood Pressure 134/68 (mmHg) O2 Sat by Pulse 92 91 Oximetry Oxygen Devices in Use Now: Nasal Cannula Appearance: Middle aged gentleman lying in bed in NAD. Eyes: No Scleral Icterus Ears/Nose/Mouth/Throat: Mucous Membranes Moist Neck: Trachea Midline Respiratory: Symmetrical Chest Expansion and Respiratory Effort, - - BS+ bilaterally coarse with scattered wheezes Cardiovascular: RRR - Normal S1 and S2 Abdominal: NL Sounds; No Tenderness; No Distention Neurological: Alert and Oriented x 3, NL Muscle Strength and Tone Nutrition: Taking PO's Result Diagrams: 02/07/17 04:53 02/07/17 22:49 Assess/Plan/Problems-Billing Assessment: Mr. Woodard is a 51yo M with PMH of bronchiectasis, IgG deficiency, pulmonary hypertension, who presented to ED with c/o cough and dyspnea on exertion, found to have bronchiectasis exacerbation. - Patient Problems (1) Acute on chronic respiratory failure with hypoxemia Comment: - Secondary to bronchiectasis exacebartion. - Continue supplemental O2. (2) Bronchiectasis Comment: - Pulmonary input appreciated. - Continue Cefepime, Solumedrol, and bronchodilators. - Continue percussion vest QID. - Dr. Nash felt most of his problem is arising from Trilogy not functioning well at home - awaiting [employer] rep to check his Trilogy prior to discharge. (3) IgG deficiency Comment: - If still here by 02/11/17, will bring his SQ Hizentra. (4) Pulmonary hypertension Comment: - Continue Tadalafil. (5) DVT prophylaxis Comment: - SQ heparin. (6) Full code status
--- NOTE | 2017-02-09 19:32 | PN ---
Progress Note - Progress Note Date of Service: 02/09/17 - Pulm consult f/u Note: Pt seen and examined at bedside. Pt reports no change in breathing. Reports that he woke up at 5 am with inability to catch breath. Also reports episode of hypoxia at that time. Active Medications Generic Name Dose Route Start Last Admin Trade Name Freq PRN Reason Stop Dose Admin Albuterol 2.5 mg 02/06/17 20:02 Ventolin 2.5 Mg/3 Ml Neb.Selina* INH Q2H PRN SOB/WHEEZING Albuterol/Ipratropium 1 neb 02/06/17 21:00 02/09/17 16:47 Duoneb (Albuterol 2.5 Mg/Ipratropium 0.5 Mg) INH 1 neb Q4H [facility]DA Administration Guaifenesin 1,200 mg 02/07/17 09:00 02/09/17 09:30 Mucinex* PO 1,200 mg BID [facility] Administration Heparin Sodium (Porcine) 5,000 units 02/06/17 22:00 02/09/17 13:19 Heparin Vial(*) SUBCUT 5,000 units Q8HR [facility] Administration Cefepime HCl 2 gm in 50 mls @ 100 mls/hr 02/06/17 21:30 02/09/17 13:20 Maxipime 2 Gm In Dextrose Duplex (*) IV 100 mls/hr Q8H [facility] Administration Methylprednisolone Sodium Succinate 60 mg 02/08/17 10:00 02/09/17 09:29 Solu-Medrol 40 Mg IV 60 mg Q12H [facility] Administration Metoprolol Succinate 25 mg 02/07/17 09:00 02/09/17 09:30 Toprol Xl Tab* PO 25 mg DAILY [facility] Administration Mometasone Furoate/Formoterol Fumar 2 puff 02/06/17 21:00 02/09/17 08:53 Dulera 200/5 Mdi* INH 2 puff BID [facility] Administration Omeprazole 20 mg 02/07/17 09:00 02/09/17 09:30 Prilosec Cap* PO 20 mg DAILY [facility] Administration Protocol Sodium Chloride 4 ml 02/06/17 21:00 02/09/17 13:50 Hyper-Librado 7%* INH 4 ml Q6H [facility] Administration Tadalafil 2.5 mg 02/09/17 09:00 02/09/17 09:32 Cialis (Nf) PO 2.5 mg DAILY [facility] Administration Vital Signs Temp Pulse Resp BP Pulse Ox 98.0 F 103 14 134/58 90 02/09/17 15:35 02/09/17 16:49 02/09/17 16:49 02/09/17 15:35 02/09/17 16:49 O/E: Pt in NAD, sitting up in bed HEENT: PERRLA, No JVD Lungs: Diminished air entry b/l, scaterred wheeze and rhonchi present CVS: S1, S2+ Abd: Soft, BS+ Ext: No edema Neuro: No focal defecits I/R: 51 y o m wth h/o bronchiectasis, IgG def,pulm HTN a/w worsening SOB, hypoxia beng treated for acute on chronic hypercapnic and hypoxic resp failure, possible bronchiectasis exacerbation Pt with earl worsening hypoxia sec to dysfunction of Trilogy/inadequate settings Will adjust Trilogy, will increase tidal volume to 450 ml, will c/w current pressure support, rate auto, will increase O2 to 5L/min Discussed with RT at bedside Will adjust BiPAP settings tonight Prescription sent to [facility] for settings to be adjusted c/w solumedrol, bronchodilators,antibiotics D/w Dr Flaherty
[2017-02-10] MEDS: Sodium Chloride(INHALANT) 7%* 4 ML NEB.SOLN INH SCH ×4 (02:03→20:53)
[2017-02-10] MEDS: Albuterol/Ipratropium NEB.SOL* Albuterol 2.5 MG/Ipratropium 0.5 MG 3 ML INH SCH ×6 (02:03→20:53)
[2017-02-10] MEDS: Heparin VIAL(*) 5000 UNITS/ML VIAL (FIVE THOUSAND) SUBCUT SCH ×3 (04:48→22:44)
[2017-02-10] MEDS: Cefepime 2 GM in Dextrose(*) 2 GM/50 ML BAG IV SCH ×3 (04:48→22:48)
[2017-02-10] MEDS: TADALAFIL 5 MG PO SCH (09:21)
[2017-02-10] MEDS: guaiFENesin ER TAB 600 MG PO SCH ×2 (09:22→22:44)
[2017-02-10] MEDS: Metoprolol Succinate XL TAB* 25 MG PO SCH ×2 (09:22→09:27)
[2017-02-10] MEDS: Omeprazole CAP* 20 MG PO SCH (09:22)
[2017-02-10] MEDS: methylPREDNISolone SOD 40 MG* 1 ML VIAL IV SCH ×2 (09:22→22:44)
[2017-02-10] MEDS: Mometasone/Formoter 200/5 MDI INH SCH ×2 (09:24→20:54)
--- NOTE | 2017-02-10 11:30 | RAD ---
INDICATION: Bronchiectasis. COMPARISON: Chest x-ray February 06, 2017 TECHNIQUE: PA and lateral dual-energy views were obtained. FINDINGS: Bones/Soft Tissues: There are no acute bony findings. Cardiomediastinal: The heart is normal in size. The central pulmonary arteries are prominent likely related to pulmonary arterial hypertension. Lungs: There is extensive interstitial pulmonary fibrosis. There is hyperinflation. Pleura: There are no pleural effusions. Other: None IMPRESSION: HYPERINFLATION WITH PULMONARY INTERSTITIAL FIBROSIS. NO ACUTE FINDINGS.
--- NOTE | 2017-02-10 14:57 | PN ---
Subjective Date of Service: 02/10/17 Interval History: HOSPITALIST PROGRESS NOTE Patient seen and examined at bedside. He had a difficult night last night with dyspnea and desaturation. RT changed BiPAP setting, increased supplemental O2 without success. In the end, patient was able to sleep with Salter cannula 10 liters, then switched back to BiPAP. He feels a little better this AM, but still has increased sputum production. Family History: Unchanged from Admission Social History: Unchanged from Admission Past Medical History: Unchanged from Admission Objective Active Medications: Albuterol (Ventolin 2.5 Mg/3 Ml Neb.Selina*) 2.5 mg INH Q2H PRN PRN Reason: SOB/WHEEZING Albuterol/Ipratropium (Duoneb (Albuterol 2.5 Mg/Ipratropium 0.5 Mg)) 1 neb INH Q4H [facility] Last Admin: 02/10/17 14:24 Dose: 1 neb Guaifenesin (Mucinex*) 1,200 mg PO BID [facility] Last Admin: 02/10/17 09:22 Dose: 1,200 mg Heparin Sodium (Porcine) (Heparin Vial(*)) 5,000 units SUBCUT Q8HR [facility] Last Admin: 02/10/17 14:22 Dose: 5,000 units Cefepime HCl (Maxipime 2 Gm In Dextrose Duplex (*)) 2 gm in 50 mls @ 100 mls/ hr IV Q8H [facility] Last Admin: 02/10/17 14:22 Dose: 100 mls/hr Methylprednisolone Sodium Succinate (Solu-Medrol 40 Mg) 60 mg IV Q12H [facility] Last Admin: 02/10/17 09:22 Dose: 60 mg Metoprolol Succinate (Toprol Xl Tab*) 25 mg PO DAILY [facility] Last Admin: 02/10/17 09:27 Dose: 25 mg Mometasone Furoate/Formoterol Fumar (Dulera 200/5 Mdi*) 2 puff INH BID [facility] Last Admin: 02/10/17 09:24 Dose: 2 puff Omeprazole (Prilosec Cap*) 20 mg PO DAILY [facility] PRN Reason: Protocol Last Admin: 02/10/17 09:22 Dose: 20 mg Sodium Chloride (Hyper-Librado 7%*) 4 ml INH Q6H [facility] Last Admin: 02/10/17 14:24 Dose: 4 ml Tadalafil (Cialis (Nf)) 2.5 mg PO DAILY [facility] Last Admin: 02/10/17 09:21 Dose: 2.5 mg Vital Signs 02/09/17 02/10/17 02/10/17 23:29 02:01 03:32 Temperature 98.3 F Pulse Rate 94 95 106 Respiratory 16 18 18 Rate Blood Pressure 148/67 157/71 (mmHg) O2 Sat by Pulse 99 98 99 Oximetry Oxygen Devices in Use Now: Nasal Cannula - 4 liters Appearance: Middle aged gentleman sitting up in bed in NAD. Eyes: No Scleral Icterus Ears/Nose/Mouth/Throat: Mucous Membranes Moist Neck: Trachea Midline Respiratory: Symmetrical Chest Expansion and Respiratory Effort, - - BS+ bilaterally coarse with scattered wheezes Cardiovascular: RRR - Normal S1 and S2 Abdominal: NL Sounds; No Tenderness; No Distention Neurological: Alert and Oriented x 3, NL Muscle Strength and Tone Lines/Tubes/Other Access: Clean, Dry and Intact Peripheral IV Nutrition: Taking PO's Result Diagrams: 02/07/17 04:53 02/07/17 22:49 Assess/Plan/Problems-Billing Assessment: Mr. Woodard is a 51yo M with PMH of bronchiectasis, IgG deficiency, pulmonary hypertension, who presented to ED with c/o cough and dyspnea on exertion, found to have bronchiectasis exacerbation. - Patient Problems (1) Acute on chronic respiratory failure with hypoxemia Comment: - Secondary to bronchiectasis exacebartion. - Continue supplemental O2. (2) Bronchiectasis Comment: - Pulmonary input appreciated. - Continue Cefepime, Solumedrol, and bronchodilators. - Continue percussion vest QID. - Dr. Nash felt most of his problem is arising from Trilogy not functioning well at home - awaiting [employer] rep to change Trilogy settings prior to discharge. If not available, may need to use a different company, but patient is not safe to go home until this is done as he has clearly failed BiPAP. (3) IgG deficiency Comment: - If still here by 02/11/17, will bring his SQ Hizentra. (4) Pulmonary hypertension Comment: - Continue Tadalafil. (5) DVT prophylaxis Comment: - SQ heparin. (6) Full code status
--- NOTE | 2017-02-10 17:14 | PN ---
Progress Note - Progress Note Date of Service: 02/10/17 - Pulm f/u Note: Pt seen and examined at bedside. Overnight events noted. Pt had episode of chocking while sleeping and was also hypoxic. Active Medications Generic Name Dose Route Start Last Admin Trade Name Freq PRN Reason Stop Dose Admin Albuterol 2.5 mg 02/06/17 20:02 Ventolin 2.5 Mg/3 Ml Neb.Selina* INH Q2H PRN SOB/WHEEZING Albuterol/Ipratropium 1 neb 02/06/17 21:00 02/10/17 16:59 Duoneb (Albuterol 2.5 Mg/Ipratropium 0.5 Mg) INH 1 neb Q4H [facility] Administration Guaifenesin 1,200 mg 02/07/17 09:00 02/10/17 09:22 Mucinex* PO 1,200 mg BID [facility] Administration Heparin Sodium (Porcine) 5,000 units 02/06/17 22:00 02/10/17 14:22 Heparin Vial(*) SUBCUT 5,000 units Q8HR [facility] Administration Cefepime HCl 2 gm in 50 mls @ 100 mls/hr 02/06/17 21:30 02/10/17 14:22 Maxipime 2 Gm In Dextrose Duplex (*) IV 100 mls/hr Q8H [facility] Administration Methylprednisolone Sodium Succinate 60 mg 02/08/17 10:00 02/10/17 09:22 Solu-Medrol 40 Mg IV 60 mg Q12H [facility] Administration Metoprolol Succinate 25 mg 02/07/17 09:00 02/10/17 09:27 Toprol Xl Tab* PO 25 mg DAILY [facility] Administration Mometasone Furoate/Formoterol Fumar 2 puff 02/06/17 21:00 02/10/17 09:24 Dulera 200/5 Mdi* INH 2 puff BID [facility] Administration Omeprazole 20 mg 02/07/17 09:00 02/10/17 09:22 Prilosec Cap* PO 20 mg DAILY [facility] Administration Protocol Sodium Chloride 4 ml 02/06/17 21:00 02/10/17 14:24 Hyper-Librado 7%* INH 4 ml Q6H [facility] Administration Tadalafil 2.5 mg 02/09/17 09:00 02/10/17 09:21 Cialis (Nf) PO 2.5 mg DAILY [facility] Administration Vital Signs Temp Pulse Resp BP Pulse Ox 97.9 F 102 20 142/66 93 02/10/17 16:06 02/10/17 17:01 02/10/17 17:01 02/10/17 16:06 02/10/17 17:01 O/E: Pt in NAD, lying in bed HEENT: PERRLA, No JVD Lungs: Diminished air entry b/l, scaterred wheeze and rhonchi present CVS: S1, S2+ Abd: Soft, BS+ Ext: No edema Neuro: No focal defecits I/R: 51 y o m wth h/o bronchiectasis, IgG def,pulm HTN a/w worsening SOB, hypoxia beng treated for acute on chronic hypercapnic and hypoxic resp failure, possible bronchiectasis exacerbation Pt with earl worsening hypoxia sec to dysfunction of Trilogy/inadequate settings or progression of disease Will adjust Trilogy, will increase tidal volume to 450 ml, will c/w current pressure support, rate auto, will increase O2 to 5L/min, prescription sent to [facility] as [facility] was not able to arrange it while he is here Discussed with RT at bedside in length Will monitor him in ICU tonight Will obtain V/Q scan as he has anaphylaxis to contrast Will do BiPAP S/T tonight in ICU ABG might not affect management CXR didnto show any acute process c/w solumedrol, bronchodilators,antibiotics Discussed with his tankroom worker over phone Pt received stem cells recently and his tankroom worker is concerned about that affecting his pulmonary problem and resulting in rapid decline in his condition Discussed with his over phone in length Prognosis guarded D/w Dr Flaherty
[2017-02-11] MEDS: Sodium Chloride(INHALANT) 7%* 4 ML NEB.SOLN INH SCH ×4 (01:56→21:20)
[2017-02-11] MEDS: Albuterol/Ipratropium NEB.SOL* Albuterol 2.5 MG/Ipratropium 0.5 MG 3 ML INH SCH ×6 (01:56→21:20)
[2017-02-11] MEDS: Cefepime 2 GM in Dextrose(*) 2 GM/50 ML BAG IV SCH ×3 (05:06→21:15)
[2017-02-11 06:11] LABS: Hematocrit 30 % (42-52); Hemoglobin 9.2 g/dl (14.0-18.0); Mean Corpuscular HGB Conc 31 g/dl (31-36); Mean Corpuscular Hemoglobin 27 pg (27-31); Mean Corpuscular Volume 89 fL (80-94); Mean Platelet Volume 8 um3 (7.4-10.4); Red Blood Count 3.36 10^6/ul (4.0-5.4); Red Cell Distribution Width 16 % (10.5-15); White Blood Count 10.3 10^3/ul (3.5-10.8)
[2017-02-11 06:14] LABS: Add Diff/Slide Review? Slide Review Added; Comments Flag Yes
[2017-02-11 06:20] LABS: BUN/Creatinine Ratio 54.3 (8-20); Blood Urea Nitrogen 25 mg/dL (6-24); Calcium 9.1 mg/dL (8.6-10.3); Chloride 91 mmol/L (101-111); EGFR African American 248.2 (>60); Glucose 133 mg/dL (70-100); Potassium 4.9 mmol/L (3.5-5.0); Sodium 140 mmol/L (133-145)
[2017-02-11 06:40] LABS: CO2 Carbon Dioxide 48 mmol/L (22-32)
[2017-02-11] MEDS: Heparin VIAL(*) 5000 UNITS/ML VIAL (FIVE THOUSAND) SUBCUT SCH ×3 (06:52→21:14)
[2017-02-11] MEDS ORDERED: predniSONE TAB* 20 MG PO ONE (09:01)
[2017-02-11] MEDS: Mometasone/Formoter 200/5 MDI INH SCH ×2 (09:01→21:20)
[2017-02-11] MEDS: guaiFENesin ER TAB 600 MG PO SCH ×2 (09:38→21:14)
[2017-02-11] MEDS: Omeprazole CAP* 20 MG PO SCH (09:38)
[2017-02-11] MEDS: Metoprolol Succinate XL TAB* 25 MG PO SCH (09:38)
[2017-02-11] MEDS: TADALAFIL 5 MG PO SCH (09:39)
--- NOTE | 2017-02-11 09:52 | RAD ---
Indication: Shortness of breath Comparison: Chest x-ray dated February 10, 2017 and shows evidence of hyperaeration and interstitial lung disease. Technique: Following the administration of 7.95 mCi of Xenon gas, ventilation images were obtained in multiple projections. Following the administration of 6.2 mCi of Tc-99m macroaggregated albumin, perfusion images were obtained in multiple projections. Report: The ventilation pattern is consistent with diffuse multifocal air trapping. The perfusion images exhibit irregular and heterogeneous uptake. There is no definite lobar or segmental defect. IMPRESSION: The heterogeneous uptake on both the ventilation and perfusion images is consistent with the hyperaeration and appearance of interstitial lung disease seen on the same day chest x-ray. There is no definite segmental or lobar perfusion mismatch. Findings are consistent with low probability for pulmonary embolism.
--- NOTE | 2017-02-11 13:38 | PN ---
Progress Note - Progress Note Date of Service: 02/11/17 - Pulm f/u note Note: Pt seen and examined at bedside this am. Pt reported that he had hard time sleeping last night however didnot have breathing difficulty. Bedside RN reported no acute events o/n or no concern with hypoxia. Pt tolerated BiPAP S/T settings last night and was comfortable. Active Medications Generic Name Dose Route Start Last Admin Trade Name Freq PRN Reason Stop Dose Admin Albuterol 2.5 mg 02/06/17 20:02 Ventolin 2.5 Mg/3 Ml Neb.Selina* INH Q2H PRN SOB/WHEEZING Albuterol/Ipratropium 1 neb 02/06/17 21:00 02/11/17 08:58 Duoneb (Albuterol 2.5 Mg/Ipratropium 0.5 Mg) INH 1 neb Q4H [facility]DA Administration Guaifenesin 1,200 mg 02/07/17 09:00 02/11/17 09:38 Mucinex* PO 1,200 mg BID [facility] Administration Heparin Sodium (Porcine) 5,000 units 02/06/17 22:00 02/11/17 06:52 Heparin Vial(*) SUBCUT 5,000 units Q8HR [facility] Administration Cefepime HCl 2 gm in 50 mls @ 100 mls/hr 02/06/17 21:30 02/11/17 05:06 Maxipime 2 Gm In Dextrose Duplex (*) IV 100 mls/hr Q8H [facility] Administration Metoprolol Succinate 25 mg 02/07/17 09:00 02/11/17 09:38 Toprol Xl Tab* PO 25 mg DAILY [facility] Administration Mometasone Furoate/Formoterol Fumar 2 puff 02/06/17 21:00 02/11/17 09:01 Dulera 200/5 Mdi* INH 2 puff BID [facility] Administration Omeprazole 20 mg 02/07/17 09:00 02/11/17 09:38 Prilosec Cap* PO 20 mg DAILY [facility] Administration Protocol Sodium Chloride 4 ml 02/06/17 21:00 02/11/17 09:01 Hyper-Librado 7%* INH 4 ml Q6H [facility] Administration Tadalafil 2.5 mg 02/09/17 09:00 02/11/17 09:39 Cialis (Nf) PO 2.5 mg DAILY [facility] Administration Vital Signs Temp Pulse Resp BP Pulse Ox 99.1 F 99 20 137/77 94 02/11/17 12:00 02/11/17 12:00 02/11/17 11:30 02/11/17 12:00 02/11/17 12:00 O/E: Pt in NAD, lying in bed, BiPAP mask in place HEENT: PERRLA, No JVD Lungs: Diminished air entry b/l, scaterred wheeze and rhonchi present, improved from before CVS: S1, S2+, tachycardia+ Abd: Soft, BS+, NT Ext: No edema, normal ROM Neuro: AAOx4, No focal defecits Laboratory Results - last 24 hr 02/11/17 02/11/17 05:25 05:25 WBC 10.3 RBC 3.36 L Hgb 9.2 L Hct 30 L MCV 89 MCH 27 MCHC 31 RDW 16 H Plt Count 242 MPV 8 Neut % (Auto) 94.0 H Lymph % (Auto) 1.8 L [place] % (Auto) 4.1 Eos % (Auto) 0 Baso % (Auto) 0.1 Absolute Neuts (auto) 9.7 H Absolute Lymphs (auto) 0.2 L Absolute Monos (auto) 0.4 Absolute Eos (auto) 0 Absolute Basos (auto) 0 Absolute Nucleated RBC 0.02 Nucleated RBC % 0.1 Sodium 140 Potassium 4.9 Chloride 91 L Carbon Dioxide 48 H* Anion Gap Not Reportable BUN 25 H Creatinine 0.46 L Est GFR ( Amer) 248.2 Est GFR (Non-Af Amer) 193.0 BUN/Creatinine Ratio 54.3 H Glucose 133 H Calcium 9.1 I/R: 51 y o m wth h/o bronchiectasis, IgG def,pulm HTN a/w worsening SOB, hypoxia beng treated for acute on chronic hypercapnic and hypoxic resp failure, possible bronchiectasis exacerbation Pt with earl worsening hypoxia and hypercapnia sec to dysfunction of Trilogy/ inadequate settings or progression of disease Plan to have Trilogy settings at d/c adjusted to tidal volume to 450 ml, will c/ w current pressure support, rate auto, will increase O2 to 5L/min, prescription sent to [facility] [place] as [facility] was not able to arrange it while he is here On antibiotics for PNA/bronchiectasis flare Will do prednisone taper on d/c He was monitored in ICU overnight with no acute events V/Q scan low probability for PE c/w BiPAP S/T for few hrs during daytime and at night c/w vest therapy c/w Cialis for Pullm HTN Discussed with pts dairy farm manager today, pt accepted for lung transplant at [place] given significant worsening of disease process Pt received stem cells recently and his dairy farm manager is concerned about that affecting his pulmonary problem and resulting in rapid decline in his condition Prognosis guarded D/w Dr Flaherty
--- NOTE | 2017-02-11 15:35 | PN ---
Subjective Date of Service: 02/11/17 Interval History: HOSPITALIST PROGRESS NOTE Patient seen and examined at bedside. He feels well this AM, no significant change in his dyspnea, but had a better night of sleep with BIPAP S/T. Cough is unchanged. Family History: Unchanged from Admission Social History: Unchanged from Admission Past Medical History: Unchanged from Admission Objective Active Medications: Albuterol (Ventolin 2.5 Mg/3 Ml Neb.Selina*) 2.5 mg INH Q2H PRN PRN Reason: SOB/WHEEZING Albuterol/Ipratropium (Duoneb (Albuterol 2.5 Mg/Ipratropium 0.5 Mg)) 1 neb INH Q4H [facility] Last Admin: 02/11/17 14:53 Dose: 1 neb Guaifenesin (Mucinex*) 1,200 mg PO BID [facility] Last Admin: 02/11/17 09:38 Dose: 1,200 mg Heparin Sodium (Porcine) (Heparin Vial(*)) 5,000 units SUBCUT Q8HR [facility] Last Admin: 02/11/17 14:05 Dose: 5,000 units Cefepime HCl (Maxipime 2 Gm In Dextrose Duplex (*)) 2 gm in 50 mls @ 100 mls/ hr IV Q8H [facility] Last Admin: 02/11/17 14:04 Dose: 100 mls/hr Metoprolol Succinate (Toprol Xl Tab*) 25 mg PO DAILY [facility] Last Admin: 02/11/17 09:38 Dose: 25 mg Mometasone Furoate/Formoterol Fumar (Dulera 200/5 Mdi*) 2 puff INH BID [facility] Last Admin: 02/11/17 09:01 Dose: 2 puff Omeprazole (Prilosec Cap*) 20 mg PO DAILY [facility]DA PRN Reason: Protocol Last Admin: 02/11/17 09:38 Dose: 20 mg Sodium Chloride (Hyper-Librado 7%*) 4 ml INH Q6H [facility] Last Admin: 02/11/17 14:53 Dose: 4 ml Tadalafil (Cialis (Nf)) 2.5 mg PO DAILY [facility] Last Admin: 02/11/17 09:39 Dose: 2.5 mg Vital Signs 02/11/17 02/11/17 02/11/17 12:00 13:00 13:30 Temperature 99.1 F Pulse Rate 99 97 Respiratory 24 Rate Blood Pressure 137/77 (mmHg) O2 Sat by Pulse 94 96 Oximetry Oxygen Devices in Use Now: Nasal Cannula - 4 liters Appearance: Pleasant gentleman sitting up in bed in NAD. Eyes: No Scleral Icterus Ears/Nose/Mouth/Throat: Mucous Membranes Moist Neck: Trachea Midline Respiratory: Symmetrical Chest Expansion and Respiratory Effort, - - BS+ bilaterally with scattered wheezing Cardiovascular: RRR - Normal S1 and S2 Abdominal: NL Sounds; No Tenderness; No Distention Extremities: No Edema Neurological: Alert and Oriented x 3, NL Muscle Strength and Tone Lines/Tubes/Other Access: Clean, Dry and Intact Peripheral IV Nutrition: Taking PO's Result Diagrams: 02/11/17 05:25 02/11/17 05:25 Assess/Plan/Problems-Billing Assessment: Mr. Woodard is a 51yo M with PMH of bronchiectasis, IgG deficiency, pulmonary hypertension, who presented to ED with c/o cough and dyspnea on exertion, found to have bronchiectasis exacerbation. - Patient Problems (1) Acute on chronic respiratory failure with hypoxemia Comment: - Secondary to bronchiectasis exacebartion. - Continue supplemental O2. (2) Bronchiectasis Comment: - Pulmonary input appreciated. - Continue Cefepime, Solumedrol, and bronchodilators. - Continue percussion vest QID. - Dr. Nash felt most of his problem is arising from Trilogy not functioning well at home. - He did well last night with BIPAP S/T - will continue tonight. - manager strategic development continues efforts to have a company ([employer], [employer] or [employer] ) come and adjust his Trilogy settings. - Dr. Nash talked to patient's primary [employer] - plan to f/u with Transplant team at [facility] after discharge. (3) IgG deficiency Comment: - If still here by 02/12/17, will bring his SQ Hizentra. (4) Pulmonary hypertension Comment: - Continue Tadalafil. (5) DVT prophylaxis Comment: - SQ heparin. (6) Full code status Status and Disposition: Anticipate d/c as soon as Trilogy settings are adjusted.
[2017-02-12] MEDS: Sodium Chloride(INHALANT) 7%* 4 ML NEB.SOLN INH SCH ×3 (02:30→16:46)
[2017-02-12] MEDS: Albuterol/Ipratropium NEB.SOL* Albuterol 2.5 MG/Ipratropium 0.5 MG 3 ML INH SCH ×5 (02:30→16:46)
[2017-02-12] MEDS: Heparin VIAL(*) 5000 UNITS/ML VIAL (FIVE THOUSAND) SUBCUT SCH ×2 (06:00→13:10)
[2017-02-12] MEDS: Cefepime 2 GM in Dextrose(*) 2 GM/50 ML BAG IV SCH ×2 (06:00→13:13)
[2017-02-12] MEDS: Mometasone/Formoter 200/5 MDI INH SCH (09:10)
[2017-02-12] MEDS: TADALAFIL 5 MG PO SCH (09:49)
[2017-02-12] MEDS: guaiFENesin ER TAB 600 MG PO SCH (09:49)
[2017-02-12] MEDS: Omeprazole CAP* 20 MG PO SCH (09:51)
[2017-02-12] MEDS: Metoprolol Succinate XL TAB* 25 MG PO SCH (09:51)
--- NOTE | 2017-02-12 09:59 | PN ---
Subjective Date of Service: 02/12/17 Interval History: HOSPITALIST PROGRESS NOTE Patient seen and examined at bedside. He offers no new complaints. Very frustrated he cannot go home and despite contacting multiple companies, he still doesn't have a working Trilogy. Family History: Unchanged from Admission Social History: Unchanged from Admission Past Medical History: Unchanged from Admission Objective Active Medications: Albuterol (Ventolin 2.5 Mg/3 Ml Neb.Selina*) 2.5 mg INH Q2H PRN PRN Reason: SOB/WHEEZING Albuterol/Ipratropium (Duoneb (Albuterol 2.5 Mg/Ipratropium 0.5 Mg)) 1 neb INH Q4H MANDA Last Admin: 02/12/17 09:09 Dose: 1 neb Guaifenesin (Mucinex*) 1,200 mg PO BID MANDA Last Admin: 02/12/17 09:49 Dose: 1,200 mg Heparin Sodium (Porcine) (Heparin Vial(*)) 5,000 units SUBCUT Q8HR MANDA Last Admin: 02/12/17 06:00 Dose: 5,000 units Cefepime HCl (Maxipime 2 Gm In Dextrose Duplex (*)) 2 gm in 50 mls @ 100 mls/ hr IV Q8H MANDA Last Admin: 02/12/17 06:00 Dose: 100 mls/hr Metoprolol Succinate (Toprol Xl Tab*) 25 mg PO DAILY MANDA Last Admin: 02/12/17 09:51 Dose: 25 mg Mometasone Furoate/Formoterol Fumar (Dulera 200/5 Mdi*) 2 puff INH BID MANDA Last Admin: 02/12/17 09:10 Dose: 2 puff Omeprazole (Prilosec Cap*) 20 mg PO DAILY MANDA PRN Reason: Protocol Last Admin: 02/12/17 09:51 Dose: 20 mg Sodium Chloride (Hyper-Librado 7%*) 4 ml INH Q6H MANDA Last Admin: 02/12/17 09:10 Dose: 4 ml Tadalafil (Cialis (Nf)) 2.5 mg PO DAILY MANDA Last Admin: 02/12/17 09:49 Dose: 2.5 mg Vital Signs 02/11/17 02/12/17 02/12/17 23:31 03:47 07:52 Temperature 97.1 F 96.8 F 97.8 F Pulse Rate 94 92 101 Respiratory 20 20 16 Rate Blood Pressure 121/68 129/67 117/60 (mmHg) O2 Sat by Pulse 97 98 94 Oximetry Oxygen Devices in Use Now: Nasal Cannula - 4 liters Appearance: Pleasant gentleman sitting up in bed in NAD. Eyes: No Scleral Icterus Ears/Nose/Mouth/Throat: Mucous Membranes Moist Neck: Trachea Midline Respiratory: Symmetrical Chest Expansion and Respiratory Effort, - - BS+ bilaterally with scattered wheeze Cardiovascular: RRR - Normal S1 and S2 Neurological: Alert and Oriented x 3, NL Muscle Strength and Tone Lines/Tubes/Other Access: Clean, Dry and Intact Peripheral IV Nutrition: Taking PO's Result Diagrams: 02/11/17 05:25 02/11/17 05:25 Assess/Plan/Problems-Billing Assessment: Mr. Woodard is a 51yo M with PMH of bronchiectasis, IgG deficiency, pulmonary hypertension, who presented to ED with c/o cough and dyspnea on exertion, found to have bronchiectasis exacerbation. - Patient Problems (1) Acute on chronic respiratory failure with hypoxemia Comment: - Secondary to bronchiectasis exacebartion. - Continue supplemental O2. (2) Bronchiectasis Comment: - Pulmonary input appreciated. - Continue Cefepime, Solumedrol, and bronchodilators. - Continue percussion vest QID. - Dr. Nash felt most of his problem is arising from Trilogy not functioning well at home. - He's doing well with BIPAP S/T - will continue tonight. - efficiency manager continues efforts to have a company ([employer], [employer] or [employer] ) come and adjust his Trilogy settings. - Dr. Nash talked to patient's primary Computer Technology Teacher - plan to f/u with Transplant team at [facility] after discharge. (3) Pulmonary hypertension Comment: - Continue Tadalafil. (4) DVT prophylaxis Comment: - SQ heparin. (5) Full code status Status and Disposition: Anticipate d/c as soon as Trilogy settings are adjusted.
--- NOTE | 2017-02-12 13:25 | PN ---
Progress Note - Progress Note Date of Service: 02/12/17 - Pulm f/u note Note: Pt seen and examined at bedside. Pt frustated regarding not being able to be d/ ela home with Trilogy. No new complaints Active Medications Generic Name Dose Route Start Last Admin Trade Name Freq PRN Reason Stop Dose Admin Albuterol 2.5 mg 02/06/17 20:02 Ventolin 2.5 Mg/3 Ml Neb.Selina* INH Q2H PRN SOB/WHEEZING Albuterol/Ipratropium 1 neb 02/06/17 21:00 02/12/17 12:17 Duoneb (Albuterol 2.5 Mg/Ipratropium 0.5 Mg) INH 1 neb Q4H MANDA Administration Guaifenesin 1,200 mg 02/07/17 09:00 02/12/17 09:49 Mucinex* PO 1,200 mg BID MANDA Administration Heparin Sodium (Porcine) 5,000 units 02/06/17 22:00 02/12/17 13:10 Heparin Vial(*) SUBCUT 5,000 units Q8HR MANDA Administration Cefepime HCl 2 gm in 50 mls @ 100 mls/hr 02/06/17 21:30 02/12/17 13:13 Maxipime 2 Gm In Dextrose Duplex (*) IV 100 mls/hr Q8H MANDA Administration Metoprolol Succinate 25 mg 02/07/17 09:00 02/12/17 09:51 Toprol Xl Tab* PO 25 mg DAILY MANDA Administration Mometasone Furoate/Formoterol Fumar 2 puff 02/06/17 21:00 02/12/17 09:10 Dulera 200/5 Mdi* INH 2 puff BID MANDA Administration Omeprazole 20 mg 02/07/17 09:00 02/12/17 09:51 Prilosec Cap* PO 20 mg DAILY MANDA Administration Protocol Sodium Chloride 4 ml 02/06/17 21:00 02/12/17 09:10 Hyper-Librado 7%* INH 4 ml Q6H MANDA Administration Tadalafil 2.5 mg 02/09/17 09:00 02/12/17 09:49 Cialis (Nf) PO 2.5 mg DAILY MANDA Administration Vital Signs Temp Pulse Resp BP Pulse Ox 97.8 F 101 20 117/60 96 02/12/17 07:52 02/12/17 12:19 02/12/17 12:19 02/12/17 07:52 02/12/17 12:19 O/E: Pt in NAD, AAOx3 HEENT: PERRLA, No JVD Lungs: Diminished air entry b/l, scaterred wheeze and rhonchi present CVS: S1, S2+, tachycardia+ Abd: Soft, BS+, NT, ND Ext: No edema, normal ROM Neuro: AAOx4, No focal defecits Labs: No new labs I/R: 51 y o m wth h/o bronchiectasis, IgG def,pulm HTN a/w worsening SOB, hypoxia beng treated for acute on chronic hypercapnic and hypoxic resp failure, possible bronchiectasis exacerbation Pt with earl worsening hypoxia and hypercapnia sec to dysfunction of Trilogy/ inadequate settings or progression of disease Plan to have Trilogy settings at d/c adjusted to tidal volume to 450 ml, will c/ w current pressure support, rate auto, will increase O2 to 5L/min, prescription sent to [facility] as [facility] was not able to arrange it while he is here Patient needs Trilogy noninvasive ventilator due to chronic respiratory failure secondary to restrictive lung disease due to bronchiectasis, occupational exposure and he may also have component of COPD. He had severeal exacerbations of bronchiectasis and has progressively worsening hypercapnia. He is being considered for lung transplant in near future. The AVAP-AE more will target his tidal volume based on his ideal body weight. It uses an auto breath rate that allows the patient to exhale down to baseline where traditional BiPAP does not and can cause breath stacking and air trapping. The Trilogy also offers sip and puff mode that can be used during the day with mouthpiece ventilation. The patients ABG have consistently shown hypercapnia with pCO2 in 100`s. The Trilogy vent will reduce CO2 levels and improve his quality of life and reduce hospital admissions. The Trilogy provide 6 hours of battery life which can be used in the event of power outage as interruption of ventilation could lead to serious medical consequences. Patient was set up with [facility] however they have been unable to service this patient when needed and therefore I am going to change vendors to [facility]. [facility] has picked up their vent. On antibiotics for PNA/bronchiectasis flare c/w vest therapy c/w Cialis for Pullm HTN Discussed with pts cake puller, pt accepted for lung transplant at [place] given significant worsening of disease process Pt received stem cells recently and his cake puller is concerned about that affecting his pulmonary problem and resulting in rapid decline in his condition Prognosis guarded D/w Dr Flaherty
[2017-02-12 14:56] VITALS: BP 122/53
--- NOTE | 2017-02-13 12:54 | DS ---
CC: Dr. Katlin Recinos; Dr. Nash; Dr. Manjit Cortes, [place], [place], Phone #[phone] DISCHARGE SUMMARY: DATE OF ADMISSION: 02/06/17 DATE OF DISCHARGE: 02/12/17 PRIMARY CARE PROVIDER: Dr. Katlin Recinos. LOCAL VAN CDL DRIVER: Dr. Nash. DISCHARGE DIAGNOSES: 1. Acute on chronic hypoxic/hypercapnic respiratory failure. 2. Acute bronchiectasis exacerbation. 3. Possible pneumonia. SECONDARY DIAGNOSES: 1. Bronchiectasis. 2. IgG nodular disease. 3. IgG immunodeficiency. 4. Pulmonary hypertension. MEDICATION LIST: 1. Metoprolol succinate 25 mg p.o. daily. 2. Magnesium oxide 400 mg p.o. daily. 3. Fluticasone nasal spray, 2 sprays to both nares daily. 4. Nexium 20 mg p.o. daily. 5. Cholecalciferol 5000 units p.o. daily. 6. Tadalafil 2.5 mg p.o. daily. 7. DuoNeb 1 nebulizer inhaled q.4 hours p.r.n. shortness of breath. 8. Advair 500/50 one puff inhaled b.i.d. 9. Prednisone taper as follows: Prednisone 40 mg p.o. daily for 3 days, then 30 mg for 3 days, 20 mg for 3 days, 10 mg daily as you are doing before. 10. Guaifenesin 1200 mg p.o. b.i.d. 11. Levaquin 750 mg p.o. daily. HOSPITAL COURSE: Mr. Woodard is a 51-year-old male with a past medical history as stated above that presented to the emergency room with complaints of cough and dyspnea on exertion. In the middle of December, the patient had been admitted down in [place], [place], with his primary form tamper operator. He was treated with high dose of steroids, antibiotics, and he was discharged home on Trilogy and initially he was doing better, but as he finished his steroid taper, he became very short of breath. The week prior to the admission, he had saturation down to the 70s and he was not tolerating his Trilogy well. For more details about his presentation, I refer you to his history and physical. He was admitted under the impression of bronchiectasis with exacerbation. He was started on steroids, IV antibiotics. He was seen in consultation by Pulmonary (Dr. Nash) and she felt that the main issue was probably malfunction of his Trilogy or his oxygen source was defective. While in the hospital, she recommended BiPAP. He was continued on his vest therapy, bronchodilators, and he had some improvement of his symptoms, but he still had some shortness of breath, some productive cough, and sometimes his oxygen saturations still dropped. Chest x-ray showed hyperinflation with pulmonary interstitial fibrosis and a V/ Q scan was low probability for pulmonary embolism study. Dr. Nash was in close contact with his form tamper operator and there was concern that as the patient received stem cells, this could be affecting his pulmonary issues and resulting in rapid decline in his condition. His form tamper operator had also contacted the Lung Transplant Service at [facility] and the patient will follow up with them as an outpatient. There were some logistic difficulties trying to obtain a new Trilogy with different setting and this delayed the patient's discharge. While in the hospital, he did not do well with a small BiPAP machine, but when he used the BiPAP ST in the intensive care unit, he did respond well to it and was able to maintain an oxygen saturation greater than 90%. Finally, we were able to obtain a Trilogy from [facility] and Dr. Nash recommended new settings as follows: Increase tidal volume to 450 mL, increase his supplemental oxygen to 5 L, and to maintain his current pressure support, rate auto as before. The patient is medically stable and anxious for discharge but he does have advanced disease and his prognosis is guarded. He was advised to follow up as soon as possible with his form tamper operator as the plan is for him to go to [facility] to continue his evaluation for lung transplant. He will also follow up with Dr. Nash in 1 to 2 weeks and with his PCP, Dr. Recinos, on 02/18/17. PHYSICAL EXAMINATION: Vital Signs: Temperature 98.3, heart rate is 103, respiratory rate is 20, oxygen saturation 93% on 5 L, blood pressure is 122/53. General: The patient is a pleasant gentleman, sitting up in bed, in no acute distress. CVS: Normal S1, S2. Regular rate and rhythm. Chest: Breath sounds present bilaterally, coarse with scattered wheeze. Extremities: No edema. Neuro: He is alert and oriented x3. Able to move all 4 extremities. DIET: Regular diet. ACTIVITIES: As tolerated. DISPOSITION: To home. STATUS WHILE IN THE HOSPITAL: Inpatient. Please keep in mind this is a summarized version of this patient's hospital stay. If you need more information, please feel free to call me at [phone] or please obtain the full medical record. TIME SPENT: Approximately 45 minutes was spent to complete this discharge. [id number]/CPS #: [id number] JEREMIAS
== END 2017-02-12 16:00 | disposition home or self-care (01) | DRG 189 ==
LOC: ED 15:16 → MED 18:32 → ICU 19:54 → MED 02-07 07:47 → ICU 02-10 18:47 → MED 02-11 16:17
PROVIDERS: ADMIT Hospitalist; ATTEND Internal Medicine
PROC: 5A09457 Assistance with Respiratory Ventilation, 24-96 Consecutive Hours, Continuous Positive Airway Pressure (ICD-10-PCS; principal; 2017-02-07)
DX: J96.21 Acute and chronic respiratory failure with hypoxia (principal); J18.9 Pneumonia, unspecified organism; I27.20 Pulmonary hypertension, unspecified; D80.3 Selective deficiency of immunoglobulin G [IgG] subclasses; I24.8 Other forms of acute ischemic heart disease; J47.0 Bronchiectasis with acute lower respiratory infection; J47.1 Bronchiectasis with (acute) exacerbation; J96.22 Acute and chronic respiratory failure with hypercapnia; R74.8 Abnormal levels of other serum enzymes; J44.9 Chronic obstructive pulmonary disease, unspecified; D64.9 Anemia, unspecified; R91.8 Other nonspecific abnormal finding of lung field; Z85.828 Personal history of other malignant neoplasm of skin; Z91.041 Radiographic dye allergy status; Z91.018 Allergy to other foods; Z88.1 Allergy status to other antibiotic agents; Z82.49 Family history of ischemic heart disease and other diseases of the circulatory system; Z82.0 Family history of epilepsy and other diseases of the nervous system; Z83.3 Family history of diabetes mellitus; Z79.52 Long term (current) use of systemic steroids
CPT/HCPCS: 36415; 36600; 71010; 71020; 78582; 80048; 80053; 80202; 82803; 83605; 83880; 84484; 85025; 85610; 87040; 87070; 87205; 87502; 87641; 87899; 93005; 94640; 94660; 94668; 94760; A9270-GY; A9540; A9558; J0692; J1644; J2920; J2930; J3370; J7512

== ENCOUNTER 2017-05-18 10:08 | Inpatient (IN) | payer MEDICARE, BC ==
[~2017-05-18 10:08] MED LIST: Etomidate* 2 MG/ML 20 ML VIAL (40 MG) ONE; Succinylcholine* 20 MG/ML 10 ML VIAL IV ONE
[2017-05-18] MEDS ORDERED: cefTRIAXone(*) 1 GM in NS 0.9% 50 ML* 50 ML IVPB ONE (10:17)
[2017-05-18] MEDS ORDERED: Succinylcholine* 20 MG/ML 10 ML VIAL IV ONE (10:19)
[2017-05-18] MEDS ORDERED: Etomidate* 2 MG/ML 10 ML VIAL IV ONE (10:19)
[2017-05-18] MEDS ORDERED: Midazolam* 1 MG/ML 10 ML VIAL (10 MG) IV ONE (10:20)
[2017-05-18] MEDS ORDERED: Midazolam concentrated* 5 MG/ML 1 ml VIAL ONE (10:23)
[2017-05-18 10:40] LABS: Hematocrit 35 % (42-52); Hemoglobin 10.4 g/dl (14.0-18.0); Mean Corpuscular HGB Conc 30 g/dl (31-36); Mean Corpuscular Hemoglobin 29 pg (27-31); Mean Corpuscular Volume 96 fL (80-94); Mean Platelet Volume 8 um3 (7.4-10.4); Platelet Count 178 10^3/ul (150-450); Red Blood Count 3.62 10^6/ul (4.0-5.4); Red Cell Distribution Width 18 % (10.5-15); White Blood Count 16.7 10^3/ul (3.5-10.8)
--- NOTE | 2017-05-18 10:45 | RAD ---
HISTORY: Respiratory distress COMPARISONS: February 10, 2017 VIEWS: 1: frontal portable view of the chest at 10:20 AM FINDINGS: LINES AND TUBES: An endotracheal tube is noted with the tip overlying the trachea between the clavicles and the oscar. A gastric tube is noted. The tip is below the [id number] of the current examination, but is below the diaphragm. CARDIOMEDIASTINAL SILHOUETTE: The cardiomediastinal silhouette is normal for portable technique. PLEURA: The costophrenic angles are sharp. No pleural abnormalities are noted. LUNG PARENCHYMA: There is a diffuse reticular pattern with indistinct pulmonary vessels. There is a superimposed pattern of patchy alveolar opacification throughout both lung garcia. ABDOMEN: The upper abdomen is clear. There is no subphrenic gas. BONES AND SOFT TISSUES: No bone or soft tissue abnormalities are noted. IMPRESSION: 1. LINES AND TUBES ABOVE. 2. PULMONARY INTERSTITIAL EDEMA WITH SUPERIMPOSED MULTIFOCAL PATCHY AIRSPACE DISEASE
[2017-05-18 10:48] LABS: EGFR Non-African American 202.4 (>60)
[2017-05-18 10:49] LABS: INR 1.02 (0.77-1.02)
[2017-05-18] MEDS ORDERED: Albuterol/Ipratropium NEB.SOL* Albuterol 2.5 MG/Ipratropium 0.5 MG 3 ML INH PRN (11:06)
[2017-05-18] MEDS: Propofol* 100 ML ONE ×2 (11:07→16:03)
[2017-05-18] MEDS: methylPREDNISolone 125 MG* 2 ML VIAL IV SCH (11:15)
[2017-05-18 11:18] LABS: ABS Basophils 0.1 10^3/ul (0-0.2); ABS Eosinophils 0 10^3/ul (0-0.6); ABS Lymphocytes 1.5 10^3/ul (1.0-4.8); ABS Monocytes 2.7 10^3/ul (0-0.8); ABS Neutrophils 12.6 10^3/ul (1.5-7.7); ABS Nucleated RBC 0 10^3/ul; Eosinophil % 0 % (0-6); Lymphocyte % 8.8 % (25-47); Nucleated Red Blood Cells % 0.2
[2017-05-18 11:24] LABS: Urine Appearance Clear; Urine Blood Negative (Negative); Urine Color Yellow; Urine Ketones Negative (Negative); Urine Protein 2+(100 mg/dL) (Negative); Urine Specific Gravity 1.028 (1.010-1.030); Urine Urobilinogen Negative (Negative)
[2017-05-18] MEDS ORDERED: Propofol* 500 MG/50 ML BTL IV SCH (12:00)
[2017-05-18] MEDS ORDERED: Piperacillin/Tazobac ADVAN(*) 3.375 GM in NS 0.9% 100 ML* 100 ML IVPB ONE (12:37)
[2017-05-18] MEDS ORDERED: Zosyn per Pharmacy* NOTE FOLLOW UP SCH (13:00)
[2017-05-18] MEDS: Albuterol/Ipratropium NEB.SOL* Albuterol 2.5 MG/Ipratropium 0.5 MG 3 ML INH SCH ×3 (15:50→19:14)
[2017-05-18] MEDS ORDERED: Propofol* 100 ML ONE (16:00)
--- NOTE | 2017-05-18 17:31 | ED ---
Isidro Rodriguez Angela, scribed for David Manrique MD on 05/18/17 at 1017 . HPI Cardiac - HPI Summary HPI Summary: ABC ALERT CALLED OVERHEAD at 10:01 AM, ETA 3 minutes. This pt is a 52 y/o male presenting to [facility] via EMS for respiratory distress. 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 EMS states that for the past 6 months pt has been doing well and therefore has not kept up with his appointments. Pt had pneumonia in January 2017. EMS notes that the pt lives with respiratory medications everyday and is on CPAP at night. Per EMS, pt felt well last night and was off his CPAP all night. found the pt this morning in respiratory distress and was lethargic. Vital Signs per EMS: BP 140/68 - History of Current Complaint Stated Complaint: ABC ALERT Hx Obtained From: Family/Wafer Line Worker - , EMS Onset/Duration: Started Hours Ago, Still Present Timing: Constant, Lasting Hours Current Severity: Severe Character: Dyspnea at Rest Aggravating Factor(s): Nothing Alleviating Factor(s): Nothing Associated Signs and Symptoms: Positive: Shortness of Breath - Additional Pertinent History Primary Care Physician: [id number] - Allergy/Home Medications Allergies/Adverse Reactions: Allergies Allergy/AdvReac Type Severity Reaction Status Date / Time Iodinated Diagnostic Agents Allergy Severe Anaphylatic Verified 05/18/17 10:35 Shock Ciprofloxacin [From Cipro] Allergy Hallucinati Verified 05/18/17 11:11 ons Mustard Seed Allergy Unknown Verified 05/18/17 10:35 Reaction Details Home Medications: Home Medications guaiFENesin ER TAB [Mucinex*] 1,200 mg PO BID PRN 05/18/17 [History Confirmed ] predniSONE TAB* [Deltasone TAB*] 10 mg PO DAILY 05/18/17 [History Confirmed ] PMH/Surg Hx/FS Hx/Imm Hx Respiratory History: Reports: Hx Asthma, Hx Chronic Obstructive Pulmonary Disease (COPD), Hx Pneumonia, Other Respiratory Problems/Disorders - 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 GI History: Reports: Hx Gastroesophageal Reflux Disease, Other GI Disorders - Polyps Musculoskeletal History: Reports: Hx Arthritis - Hands and knees Sensory History: Reports: Hx Contacts or Glasses Denies: Hx Legally Blind, Hx Deafness, Hx Hearing Aid Opthamlomology History: Reports: Hx Contacts or Glasses Denies: Hx Legally Blind Psychiatric History: Reports: Hx Depression - Surgical History Surgery Procedure, Year, and Place: sinus surgery (October 2015), tumor removed from left arm (30 years ago) - Family History Known Family History: Negative: Cardiac Disease - Social History Alcohol Use: None Hx Substance Use: No Substance Use Type: Reports: None Smoking Status (MU): Never Smoked Tobacco Review of Systems - ROS Summary Review of Systems Summary: ROS IS LIMITED DUE TO LEVEL 5 CAVEAT - pt is in respiratory distress Negative: Fever, Chills Respiratory: Other - respiratory distress Positive: Shortness Of Breath All Other Systems Reviewed And Are Negative: No Physical Exam - Summary Physical Exam Summary: VITAL SIGNS: Reviewed. GENERAL: Patient is lethargic an being baged by EMS. Patient was not intubated by EMS. HEAD AND FACE: No signs of trauma. No ecchymosis, hematomas or skull depressions. EYES: Pupils MOUTH: Oral mucosa dry NECK: Supple, trachea is midline, no adenopathy, no JVD, no carotid bruit. LUNGS: Decreased breath sounds with crackles bilateral CVS: S1 and S2 present. No murmurs ABDOMEN: Soft and decreased bowel sounds. EXTREMITIES: No edema noted. NEURO: Lethargic SKIN: Dry and warm Triage Information Reviewed: Yes Vital Signs On Initial Exam: Initial Vitals Temp Pulse Resp BP Pulse Ox 97.3 F 114 34 88/54 90 05/18/17 10:10 05/18/17 10:10 05/18/17 10:10 05/18/17 10:10 05/18/17 10:10 Vital Signs Reviewed: Yes Diagnostics - Vital Signs Vital Signs Temp Pulse Resp BP Pulse Ox 05/18/17 10:35 106 16 138/95 96 05/18/17 10:25 107 13 136/88 99 05/18/17 10:20 110 16 130/81 99 05/18/17 10:15 117 15 88/54 99 05/18/17 10:10 97.3 F 105 24 163/62 92 - Laboratory Lab Results: Lab Results 05/18/17 05/18/17 05/18/17 Range/Units 10:10 10:10 10:10 WBC 16.7 H (3.5-10.8) 10^3/ul RBC 3.62 L (4.0-5.4) 10^6/ul Hgb 10.4 L (14.0-18.0) g/dl Hct 35 L (42-52) % MCV 96 H (80-94) fL MCH 29 (27-31) pg MCHC 30 L (31-36) g/dl RDW 18 H (10.5-15) % Plt Count 178 (150-450) 10^3/ul MPV 8 (7.4-10.4) um3 Neut % (Auto) 74.9 (38-83) % Lymph % (Auto) 8.8 L (25-47) % [place] % (Auto) 15.9 H (1-9) % Eos % (Auto) 0 (0-6) % Baso % (Auto) 0.4 (0-2) % Absolute Neuts (auto) 12.6 H (1.5-7.7) 10^3/ul Absolute Lymphs (auto) 1.5 (1.0-4.8) 10^3/ul Absolute Monos (auto) 2.7 H (0-0.8) 10^3/ul Absolute Eos (auto) 0 (0-0.6) 10^3/ul Absolute Basos (auto) 0.1 (0-0.2) 10^3/ul Absolute Nucleated RBC 0 10^3/ul Nucleated RBC % 0.2 Polychromasia 1+ Basophilic Stippling 1+ Stomatocytes 2+ INR (Anticoag Therapy) 1.02 (0.77-1.02) APTT 31.8 (26.0-36.3) seconds Sodium 142 (133-145) mmol/L Potassium 4.8 (3.5-5.0) mmol/L Chloride 85 L (101-111) mmol/L Carbon Dioxide Pending Anion Gap Pending BUN 24 (6-24) mg/dL Creatinine 0.44 L (0.67-1.17) mg/dL Est GFR ( Amer) 260.3 (>60) Est GFR (Non-Af Amer) 202.4 (>60) BUN/Creatinine Ratio 54.5 H (8-20) Glucose 177 H (70-100) mg/dL Lactic Acid (0.5-2.0) mmol/L Calcium 10.5 H (8.6-10.3) mg/dL Phosphorus 3.7 (2.5-5.0) mg/dL Total Bilirubin 0.30 (0.2-1.0) mg/dL AST 24 (13-39) U/L ALT 15 (7-52) U/L Alkaline Phosphatase 142 H (34-104) U/L Total Creatine Kinase 22 (10-223) U/L CK-MB (CK-2) 3.8 (0.6-6.3) ng/mL Troponin I 0.03 (<0.04) ng/mL C-Reactive Protein 20.18 H (< 5.00) mg/L Total Protein 6.5 (6.4-8.9) g/dL Albumin 3.7 (3.2-5.2) g/dL Globulin 2.8 (2-4) g/dL Albumin/Globulin Ratio 1.3 (1-3) Blood Type Antibody Screen 05/18/17 05/18/17 Range/Units 10:10 10:10 WBC (3.5-10.8) 10^3/ul RBC (4.0-5.4) 10^6/ul Hgb (14.0-18.0) g/dl Hct (42-52) % MCV (80-94) fL MCH (27-31) pg MCHC (31-36) g/dl RDW (10.5-15) % Plt Count (150-450) 10^3/ul MPV (7.4-10.4) um3 Neut % (Auto) (38-83) % Lymph % (Auto) (25-47) % [place] % (Auto) (1-9) % Eos % (Auto) (0-6) % Baso % (Auto) (0-2) % Absolute Neuts (auto) (1.5-7.7) 10^3/ul Absolute Lymphs (auto) (1.0-4.8) 10^3/ul Absolute Monos (auto) (0-0.8) 10^3/ul Absolute Eos (auto) (0-0.6) 10^3/ul Absolute Basos (auto) (0-0.2) 10^3/ul Absolute Nucleated RBC 10^3/ul Nucleated RBC % Polychromasia Basophilic Stippling Stomatocytes INR (Anticoag Therapy) (0.77-1.02) APTT (26.0-36.3) seconds Sodium (133-145) mmol/L Potassium (3.5-5.0) mmol/L Chloride (101-111) mmol/L Carbon Dioxide Anion Gap BUN (6-24) mg/dL Creatinine (0.67-1.17) mg/dL Est GFR ( Amer) (>60) Est GFR (Non-Af Amer) (>60) BUN/Creatinine Ratio (8-20) Glucose (70-100) mg/dL Lactic Acid 0.9 (0.5-2.0) mmol/L Calcium (8.6-10.3) mg/dL Phosphorus (2.5-5.0) mg/dL Total Bilirubin (0.2-1.0) mg/dL AST (13-39) U/L ALT (7-52) U/L Alkaline Phosphatase (34-104) U/L Total Creatine Kinase (10-223) U/L CK-MB (CK-2) (0.6-6.3) ng/mL Troponin I (<0.04) ng/mL C-Reactive Protein (< 5.00) mg/L Total Protein (6.4-8.9) g/dL Albumin (3.2-5.2) g/dL Globulin (2-4) g/dL Albumin/Globulin Ratio (1-3) Blood Type O Positive Antibody Screen Negative Result Diagrams: 05/18/17 10:10 05/18/17 10:10 Lab Statement: Any lab studies that have been ordered have been reviewed, and results considered in the medical decision making process. - Radiology Chest XR Xray Interpretation: Positive (See Comments) - IMPRESSION: 1. Lines and tubes as above. 2. Pulmonary interstitial edema with superimposed multifocal patchy airspace disease. Dr. Manrique has reviewed this radiology report. Radiology Interpretation Completed By: Radiologist - EKG 10:13 Cardiac Rate: Tachycardia EKG Rhythm: Sinus Tachycardia - at 107 bpm EKG Interpretation: No ST elevation. Poor quality EKG. Disposition - Course Course Of Treatment: ABC ALERT CALLED OVERHEAD at 10:01 AM, ETA 3 minutes. This pt is a 52 y/o male presenting to [facility] via EMS for respiratory distress. 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 EMS states that for the past 6 months pt has been doing well and therefore has not kept up with his appointments. Pt had pneumonia in January 2017. EMS notes that the pt lives with respiratory medications everyday and is on CPAP at night. Per EMS, pt felt well last night and was off his CPAP all night. found the pt this morning in respiratory distress and was lethargic. Initially when the pt came in he was having agonal respirations. The pt was very lethargic, cyanotic and hypoxic. Therefore, immediately I decided to intubate the pt to control airway. Pt was placed on a monitor and obtained 2 IV access. Test results show WBC of 16.7, slight anemia, carbon dioxide od 55, glucose is 177, CRP of 20.1. Urinalysis is negative for UTI. Influenza A and B is negative. Chest XR shows pulmonary interstitial edema. At this point, Dr. Grijalva took over the care for the pt and will administer diuretics as needed. At this point the pt is hemodynamically stable, airway is controlled, and he is going to be admitted to the ICU services. - Differential Dx - Cardiopulmonary Differential Diagnoses - Cardiopulmonary: Acute Coronary, Acute Dyspnea, Airway Obstruction, CHF, Exacerbation Of COPD - Diagnoses Provider Diagnoses: Respiratory failure, Pulmonary edema During the Visit The Following Alert/Code Occurred: ABC Alert - at 10:01 AM, ETA 3 minutes - Critical Care Time Critical Care Time: 75-104 min Discharge - Discharge Plan Condition: Stable Disposition: ADMITTED TO [facility] The documentation as recorded by the Isidro roldan Angela accurately reflects the service I personally performed and the decisions made by me, David Manrique MD.
[2017-05-18] MEDS: ZOSYN 3.375 GM Q8H per EXTENDED INFUSION IVPB SCH ×2 (17:48)
--- NOTE | 2017-05-18 17:48 | RAD ---
Indication: Central line placement. Single frontal view of the chest performed at 1720 hours was reviewed. Comparison is made with previous exam dated earlier the same day. No mediastinal shift is noted. Heart is of normal size and configuration. Interstitial edema persists. There is now a right-sided internal jugular vein catheter with the tip at the atrial caval junction. No pneumothorax is noted.. IMPRESSION: ] INTERNAL JUGULAR VEIN CATHETER AT THE ATRIAL CAVAL JUNCTION WITH NO PNEUMOTHORAX. PERSISTENT INTERSTITIAL EDEMA.
[2017-05-18] MEDS: Propofol* 100 ML IV SCH (19:57)
--- NOTE | 2017-05-18 20:21 | HP ---
ADMISSION HISTORY AND PHYSICAL: DATE OF ADMISSION: 05/18/17 REASON FOR ADMISSION: Respiratory failure. HISTORY OF PRESENT ILLNESS: This patient is a 52-year-old male with a history of chronic respiratory failure secondary to bronchiectasis (apparently occupationally related) as well as ill-defined nodular lung disease with pulmonary hypertension. He was most recently in this hospital in January, , when he was admitted for acute respiratory failure that did not require mechanical ventilation -was discharged home on O2 and BiPAP as needed. The patient now returns with 2 to 3 days of increasing lethargy and shortness of breath. He has had copious sputum production, but has that chronically. The patient was intubated on arrival to the emergency department - and history obtained from . Has been followed by Dr. Nash (Pulmonary Service). OUTPATIENT MEDICATIONS: 1. Metoprolol 25 mg daily. 2. DuoNeb q.4 hours. 3. Nexium 20 mg daily. 4. Flonase 2 sprays in each nares daily. 5. Prednisone 10 mg daily. 6. Cialis 2.5 mg daily. DRUG ALLERGIES: Include IODINATED DIAGNOSTIC AGENTS, which previously anaphylactic shock; CIPROFLOXACIN, which causes hallucinations; and MUSTARD SEED , which causes an unknown reaction. SOCIAL HISTORY: The patient is and lives with his . There is no history of alcohol abuse or smoking. 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 REVIEW OF SYSTEMS: Unobtainable. PHYSICAL EXAMINATION GENERAL: The patient was unresponsive, on propofol infusion. VITAL SIGNS: Temperature 97.7, blood pressure 111/70, pulse 98 and regular, respiratory rate 16 on the ventilator, arterial O2 sats are 96% on 50% FiO2. HEENT: Pupils mid position and reactive. No facial asymmetry. Orotracheal tube in place. NECK: No masses or jugular venous distention. LUNGS: There were coarse rhonchi throughout and end-expiratory crackles in both lungs. No wheezes noted. CARDIAC EXAM: P2 equal A2. Rhythm regular. No discernible murmurs. ABDOMEN: Not distended. Bowel sounds were present. EXTREMITIES: Warm, not edematous, and not cyanotic. ADMISSION LABORATORY DATA: Significant for a white count of 16.7, hemoglobin is 7.4, serum bicarb of 55, chloride of 85, C-reactive protein of 20.1. Chest x -ray showed patchy infiltrates in both lung garcia, unchanged from a prior film obtained in January of last year. Arterial blood gas is pending. IMPRESSION: Acute on chronic respiratory failure secondary to bronchiectasis superimposed on possible interstitial lung disease. Acute infection is a likely instigating event, although chest x-ray appears unchanged. The severity of the metabolic alkalosis suggests severe hypercapnia while at home. MANAGEMENT PLAN: 1. Start broad-spectrum antibiotic coverage with Zosyn. 2. Culture sputum and blood. 3. Increase steroid dose to 60 mg daily for exacerbation of chronic lung disease. 4. Dr. Nash has been consulted. The patient's is present at the bedside and is aware of the current situation. The prognosis is very guarded in this case. CRITICAL CARE TIME: Sixty minutes. [id number]/CPS #: [id number] MTDJuan Jose
[2017-05-18] MEDS ORDERED: Norepinephrine 16MCG/ML IVPRE* 4,000 MCG/250 ML BAG IV ONE (21:31)
[2017-05-19] MEDS: Albuterol/Ipratropium NEB.SOL* Albuterol 2.5 MG/Ipratropium 0.5 MG 3 ML INH SCH ×7 (00:19→19:17)
--- NOTE | 2017-05-19 00:30 | CONS ---
PULMONARY CONSULTATION REPORT: DATE OF CONSULT: 05/18/17 CONSULTATION REQUESTED BY: Dr. Rafita Grijalva. REASON FOR CONSULTATION: Respiratory failure. HISTORY OF PRESENT ILLNESS: The patient is a 52-year-old male with history of IgG immunodeficiency, history of bronchitis, occupational lung disease, skin cancer, pulmonary hypertension, chronic respiratory failure with hypercapnia, being evaluated for lung transplant which he has refused. The patient has been on Trilogy for chronic respiratory failure. The patient was hospitalized in January of last year for worsening shortness of breath and hypercapnic respiratory failure that has improved with noninvasive ventilation. He was brought in today by his for evaluation of altered mental status. He was more lethargic as per . He was found to have respiratory distress upon arrival and ABC alert was called. He was intubated in the ED and was admitted to ICU. I have seen and examined the patient at bedside. The patient remains on propofol for sedation, has been diaphoretic, O2 sats in high 80s while on mechanical ventilator. The patient did not tolerate APRV and he is nonconventional ventilation at this point. The patient was attempted to have blood gas; however, was unsuccessful due to microvascular clotting that was happening. The patient remains in critical condition in the ICU on the ventilator. He is not requiring blood pressure support, is hemodynamically stable. PAST MEDICAL HISTORY: 1. Bronchiectasis. 2. Immunodeficiency disorder. 3. Occupational lung disease. 4. Skin cancer. 5. Pulmonary hypertension. 6. Chronic hypercapnic respiratory failure. PAST SURGICAL HISTORY: 1. Sinus surgery. 2. Skin cancer excision. 3. Bronchoscopy and biopsies in the past. MEDICATIONS: Home medications: 1. Metoprolol. 2. Magnesium. 3. Flonase. 4. Nexium. 5. Vitamin D3. 6. Z-Yariel. 7. Prednisone taper. 8. Cialis. 9. DuoNeb. 10. Advair. 11. IgG injections weekly. 12. Trilogy machine. 13. Saline nebulizers. 14. Albuterol/DuoNeb nebulizers. ALLERGIES: IV DYE, CIPRO, MUSTARD SEEDS. FAMILY HISTORY: Mother, diabetic. Father, Parkinson's and hypertension. SOCIAL HISTORY: He quit smoking in the past. No alcohol or drug abuse. REVIEW OF SYSTEMS: Could not be obtainable as the patient is intubated. PHYSICAL EXAM: The patient sedated on ventilator, in no apparent distress. Vital Signs: He has been having accessory respiratory muscle usage. Temperature 96.3, pulse 93 beats per minute, respiratory rate 22 to 24, O2 sats 87% to 91% on 60% FiO2, blood pressure 106/62. HEENT: Pupils equal, reactive to light, sluggish. Respiratory: Distant breath sounds, scattered rhonchi. Cardiovascular: Tachycardiac, no murmurs. Abdomen: Soft, nontender, nondistended. Bowel sounds present. Extremities: Most spontaneously to painful stimuli. DIAGNOSTIC STUDIES/LAB DATA: Chest x-ray performed on admission was personally reviewed, has chronic interstitial changes with slight prominence in comparison with his prior x-ray. WBC count 16.9, hemoglobin 10.4, hematocrit 35, platelet count 178. Blood gas showed pCO2 of 91 in the past, I was not able to obtain this time, his end- tidal CO2 is elevated at 60 to 65. Sodium 142, potassium 4.8, chloride 85, bicarb elevated at 55, BUN 24, creatinine 0.44. Chest x-ray as described above in the HPI. IMPRESSION AND RECOMMENDATIONS: 52-year-old male with acute on chronic hypercapnic respiratory failure, altered mental status. Overall prognosis remains grim. Agree with current management as per critical foster care social worker, Dr. Grijalva. He is on bronchodilators, broad-spectrum antibiotics. Vent settings are adjusted to help stabilize the patient, to maintain ventilation and oxygenation. He is hemodynamically stable at this point. Overall prognosis poor. Discussed with Dr. Grijalva, patient's unable to reach, left voice mail. [id number]/[facility] #: [id number] MTDD
[2017-05-19] MEDS: ZOSYN 3.375 GM Q8H per EXTENDED INFUSION IVPB SCH ×6 (01:19→17:38)
[2017-05-19] MEDS: Chlorhexidine MOUTHWASH 0.12%* 15 ML UDC TOPICAL SCH ×6 (01:48→21:45)
[2017-05-19] MEDS: Norepinephrine 16MCG/ML IVPRE* 4,000 MCG/250 ML BAG IV SCH ×5 (02:32→15:50)
[2017-05-19] MEDS: Propofol* 100 ML IV SCH (02:47)
[2017-05-19 06:54] LABS: EGFR Non-African American 36.5 (>60)
[2017-05-19 07:26] LABS: ABS Basophils 0 10^3/ul (0-0.2); ABS Eosinophils 0 10^3/ul (0-0.6); ABS Lymphocytes 0.2 10^3/ul (1.0-4.8); ABS Neutrophils 18.8 10^3/ul (1.5-7.7); ABS Nucleated RBC 0.1 10^3/ul; Eosinophil % 0 % (0-6); Hematocrit 33 % (42-52); Hemoglobin 9.6 g/dl (14.0-18.0); Lymphocyte % 0.9 % (25-47); Mean Corpuscular HGB Conc 29 g/dl (31-36); Mean Corpuscular Hemoglobin 29 pg (27-31); Mean Corpuscular Volume 99 fL (80-94); Mean Platelet Volume 8 um3 (7.4-10.4); Nucleated Red Blood Cells % 0.5; Platelet Count 197 10^3/ul (150-450); Red Blood Count 3.31 10^6/ul (4.0-5.4); Red Cell Distribution Width 18 % (10.5-15)
[2017-05-19] MEDS: Pantoprazole IV* 40 MG IV SCH (07:46)
[2017-05-19] MEDS: methylPREDNISolone 125 MG* 2 ML VIAL IV SCH (07:46)
[2017-05-19 11:15] LABS: EGFR Non-African American 35.3 (>60)
[2017-05-19] MEDS: Heparin VIAL(*) 5000 UNITS/ML VIAL (FIVE THOUSAND) SUBCUT SCH ×2 (11:18→21:45)
[2017-05-19] MEDS ORDERED: Dextrose 50% Syringe 50 ML* 25 GM/50 ML SYRINGE ONE (13:22)
[2017-05-19] MEDS ORDERED: Insulin REGULAR(*) 1 UNITS UNIT ONE (13:23)
--- NOTE | 2017-05-19 13:28 | PN ---
Date of Service: 05/19/17 Critical Care Services: Problems now with multiorgan failure - respiratory, hemodynamic (on levophed at 20 jaguar/min), renal (creat up to 2.0), [employer] (unresponsive off propofol). Family present at bedside, and are aware of current condition Vital Signs: Temp Pulse Resp BP SpO2 FiO2 98.0 F 99 24 84/42 100 100 NOTE: On levophed at 20 mcg/kg/min. Physical Exam: Gen:Unresponsive. HEENT: Pupils midposition and sluggishly reactive. Lungs: Course crackles on both sides. Cardiac: Reg rhythm Abdomen:Not distended. Extremities: warm. No cyanosis. 2+edema. Fluid Balance (Past 24 Hours): 05/19/17 06:59 Intake Total 3900 Output Total 470 Balance +3430 Weight 174 lb Intake: IV Fluids 3546 LR 3197 NS with ABX 349 IVPB 160 NS with ABX 160 Medicated IV 194 Propofol 194 Output: NG Tube Drainage Amount 350 Aggarwal 120 Labs: 05/19/17 05/19/17 05:40 05:40 WBC 21.0 H Hgb 9.6 Hct 33 MCV 99 Plt Count 197 Sodium 143 Potassium 7.0 Chloride 87 L Carbon Dioxide 54 BUN 38 H Creatinine 1.94 H Est GFR ( Amer) 47.0 Est GFR (Non-Af Amer) 36.5 BUN/Creatinine Ratio 19.6 Glucose 99 Calcium 10.0 05/19/17 07:43 Sodium 146 H Potassium 6.8 Chloride 88 Carbon Dioxide 55 BUN 38 Creatinine 2.00 Glucose 81 Calcium 9.7 Studies: None Nutrition: None (other than calories provided by propofol) Impression: Patient with probable anoxic encephalopathy and progressive multiorgan failure. Prognosis is very poor. Plan: Will speak with patient's about DNR. In meantime, will give glucose and insulin for the hyperkalemia. Will increase levophed to max of 40 mcg/min, if needed. Critical Care Time: 50 minutes
[2017-05-19] MEDS: EPINEPHRINE IVPB SCH (14:50)
[2017-05-19] MEDS: D5W IVPB SCH (14:50)
[2017-05-19] MEDS ORDERED: Dextrose 50% Syringe 50 ML* 25 GM/50 ML SYRINGE IV PUSH ONE (16:00)
--- NOTE | 2017-05-19 17:09 | RAD ---
Indication: Bilateral leg edema Duplex Doppler sonography of the deep venous system of both lower extremities was performed. Bilaterally the common femoral veins, proximal greater saphenous veins, proximal deep femoral veins, femoral veins, popliteal veins, posterior tibial veins and peroneal veins appear patent and compressible. IMPRESSION: NO EVIDENCE OF DEEP VENOUS THROMBOSIS OF EITHER LOWER EXTREMITY IS PRESENT. The study is somewhat limited due to patient's condition..
--- NOTE | 2017-05-19 17:10 | PRO ---
PROCEDURE NOTE: DATE OF PROCEDURE: 05/18/17 - ROOM #ICU-01 PROCEDURE: Insertion of a central venous catheter. DESCRIPTION OF PROCEDURE: This patient is a 52-year-old male with severe occupational lung disease, who is admitted with acute respiratory failure and requiring mechanical ventilation. Because of difficult vascular access, a central venous catheter was inserted in the right-sided internal jugular vein under ultrasound guidance and catheter was sutured and appropriately dressed. There were no apparent complications. Catheter position will be verified by a portable chest x-ray. [id number]/[facility] #: [id number] [facility]
[2017-05-19] MEDS: Norepinephrine 8 mg in 500 mL NS (Pharmacy Admixed Drip) IV SCH (17:28)
[2017-05-19] MEDS: PHENYLEPHRINE IV SCH ×2 (19:29)
[2017-05-19] MEDS: SODIUM CHLORIDE IV SCH ×2 (19:29)
[2017-05-20] MEDS: ZOSYN 3.375 GM Q8H per EXTENDED INFUSION IVPB SCH ×4 (01:14→09:20)
[2017-05-20] MEDS: Albuterol/Ipratropium NEB.SOL* Albuterol 2.5 MG/Ipratropium 0.5 MG 3 ML INH SCH ×2 (02:45→08:31)
[2017-05-20] MEDS: Chlorhexidine MOUTHWASH 0.12%* 15 ML UDC TOPICAL SCH ×3 (02:52→08:38)
[2017-05-20] MEDS: PHENYLEPHRINE IV SCH ×2 (02:52)
[2017-05-20] MEDS: SODIUM CHLORIDE IV SCH ×2 (02:52)
[2017-05-20] MEDS: Norepinephrine 8 mg in 500 mL NS (Pharmacy Admixed Drip) IV SCH ×2 (02:52→05:05)
[2017-05-20] MEDS: EPINEPHRINE IVPB SCH (02:53)
[2017-05-20] MEDS: D5W IVPB SCH (02:53)
[2017-05-20 05:14] LABS: Hematocrit 28 % (42-52); Hemoglobin 8.2 g/dl (14.0-18.0); Mean Corpuscular HGB Conc 29 g/dl (31-36); Mean Corpuscular Hemoglobin 30 pg (27-31); Mean Corpuscular Volume 101 fL (80-94); Mean Platelet Volume 8 um3 (7.4-10.4); Platelet Count 165 10^3/ul (150-450); Red Blood Count 2.75 10^6/ul (4.0-5.4); Red Cell Distribution Width 17 % (10.5-15); White Blood Count 15.8 10^3/ul (3.5-10.8)
[2017-05-20 05:23] LABS: EGFR Non-African American 14.7 (>60)
[2017-05-20] MEDS ORDERED: Dextrose 50% Syringe 50 ML* 25 GM/50 ML SYRINGE IV PUSH STA (06:03)
[2017-05-20] MEDS ORDERED: Insulin REGULAR(*) 1 UNITS UNIT IV PUSH STA (06:04)
[2017-05-20] MEDS ORDERED: Sodium Polystyrene ORAL.SOL* 15 GM/60 ML BTL STA (06:05)
[2017-05-20] MEDS ORDERED: Insulin REGULAR(*) 1 UNITS UNIT ONE (06:07)
[2017-05-20] MEDS ORDERED: Sodium Polystyrene ORAL.SOL* 15 GM/60 ML BTL ONE (06:07)
[2017-05-20] MEDS ORDERED: CALCIUM GLUCONATE* 1 GM/10 ML VIAL (in Pyxis) ONE (06:07)
[2017-05-20] MEDS ORDERED: Dextrose 50% Syringe 50 ML* 25 GM/50 ML SYRINGE ONE (06:08)
[2017-05-20] MEDS ORDERED: Calcium Gluconate INJ* 1 GM in NS 0.9% 50 ML* 50 ML IVPB ONE (06:20)
[2017-05-20] MEDS: NOREPINEPHRINE IV SCH ×6 (07:15→14:55)
[2017-05-20] MEDS: NS 0.9% IV SCH ×6 (07:15→14:55)
[2017-05-20] MEDS ORDERED: Acetaminophen ADULT LIQ* 650 MG/20.3 ML UDC NG TUBE PRN (07:29)
[2017-05-20] MEDS: Heparin VIAL(*) 5000 UNITS/ML VIAL (FIVE THOUSAND) SUBCUT SCH (08:38)
[2017-05-20] MEDS: methylPREDNISolone 125 MG* 2 ML VIAL IV SCH (08:38)
[2017-05-20] MEDS: Pantoprazole IV* 40 MG IV SCH (08:38)
[2017-05-20] MEDS ORDERED: Morphine INJ* 10 MG/ML 1 ML CARPUJECT IV ONE (12:35)
[2017-05-20 13:32] VITALS: BP 94/49
[2017-05-20] MEDS ORDERED: MORPHINE PCA SCH (14:20)
--- NOTE | 2017-05-21 01:52 | DS ---
SUMMARY: DATE OF ADMISSION: 05/18/17 DATE OF : 05/20/17 HISTORY: This patient is a 52-year-old male with a history of chronic respiratory failure due to occupational lung disease, who was admitted following a respiratory rest, requiring intubation and mechanical ventilation. The patient's hospitalization was characterized by progressive hypotension, renal insufficiency, and continued coma. It was felt that the patient had suffered anoxic brain injury and because of the associated multiorgan failure, the prognosis was grim. The patient's decided to institute comfort measures and on 05/20/17, the patient was removed from mechanical ventilation and placed on a morphine infusion and was pronounced at 02:05 p.m. on the same day. The patient's was present at the time of and an autopsy was denied. FINAL DIAGNOSES: 1. Respiratory arrest. 2. Anoxic brain injury. 3. Progressive circulatory shock. 4. Renal insufficiency. 5. Occupational lung disease. [id number]/[facility]PS #: [id number] MTDD
== END 2017-05-20 14:05 | disposition expired | DRG 208 ==
LOC: ED 10:08 → ICU 10:40
PROVIDERS: ADMIT Internal Medicine Critical Care Medicine; ATTEND Internal Medicine Critical Care Medicine
PROC: 0BH17EZ Insertion of Endotracheal Airway into Trachea, Via Natural or Artificial Opening (ICD-10-PCS; principal; 2017-05-18)
PROC: 5A1945Z Respiratory Ventilation, 24-96 Consecutive Hours (ICD-10-PCS; 2017-05-18)
DX: J96.22 Acute and chronic respiratory failure with hypercapnia (principal); R57.0 Cardiogenic shock; G93.1 Anoxic brain damage, not elsewhere classified; N28.9 Disorder of kidney and ureter, unspecified; J47.9 Bronchiectasis, uncomplicated; I27.20 Pulmonary hypertension, unspecified; J44.9 Chronic obstructive pulmonary disease, unspecified; K21.9 Gastro-esophageal reflux disease without esophagitis; M17.0 Bilateral primary osteoarthritis of knee; M19.042 Primary osteoarthritis, left hand; M19.041 Primary osteoarthritis, right hand; Z88.8 Allergy status to other drugs, medicaments and biological substances; Z79.52 Long term (current) use of systemic steroids; Z88.1 Allergy status to other antibiotic agents; Z79.899 Other long term (current) drug therapy; Z91.018 Allergy to other foods
CPT/HCPCS: 36415; 36600; 71045; 80048; 80053; 81003; 81015; 82550; 82553; 83605; 83735; 83880; 84100; 84132; 84484; 85025; 85027; 85610; 85730; 86140; 86850; 86900; 86901; 87040; 87070; 87205; 87502; 87641; 92950; 93005; 93970; 94002; 94003; 94640; A9270-GY; J0171; J0330; J0610; J0696; J1644; J2250; J2270; J2543; J2704; J2930; J7060